=== PATIENT | male | born 1950 | race Caucasian/White ===

== ENCOUNTER → 2019-05-11 | Outpatient (CLI) | payer OTHER ==
[~2019-05-11] VITALS: Ht 165 cm; Wt 65.0 kg
[~2019-05-11] MED LIST: CATHETER FLUSH 10 ML SYR IV PRN; REGADENOSON 0.4 MG/5 ML SYR (LEXISCAN) IV ONE
--- NOTE | 2019-05-11 11:55 | STRESS TEST ---
DATE OF SERVICE: 05/11/2019 NUCLEAR MYOVIEW REPORT REFERRING PHYSICIAN: Dr. Hernández. SUMMARY: The patient was injected with 10.4 mCi of technetium-99 Myoview and the resting images were obtained. Then, the patient received 31.4 mCi of technetium-99 Myoview and the stress images were acquired. The resting and stress images were reviewed and compared in the short axis, horizontal long axis, and vertical long axis views. Review of the images showed good radiotracer uptake with no significant ischemia or infarction. SSS 1, SDS 1. TID value 1.08. On the gated images, the left ventricle appeared to be normal size with normal contractility. Calculated ejection fraction 78%. CONCLUSION: 1. No ischemia or infarction on SPECT images. 2. Normal left ventricular size with normal contractility. Calculated ejection fraction 78%. Job ID: [id number] DocumentID: [id number] Dictated Date: 05/11/2019 11:16:03 [employer] Date: 05/11/2019 11:54:35 Dictated By: CAMMY VASQUEZ MD
== END ==
LOC: CARD 06:44
PROVIDERS: ATTEND Internal Medicine
DX: R55 Syncope and collapse (principal)
CPT/HCPCS: 78452; 93017

== ENCOUNTER → 2019-05-12 | Outpatient (CLI) | payer OTHER ==
--- NOTE | 2019-05-12 14:54 | Diagnostic Imaging Report ---
PROCEDURE: US carotid duplex, bilateral. TECHNIQUE: Multiple real-time grayscale images were obtained over the carotid arteries in various projections, bilaterally. Additional spectral analysis and color Doppler duplex images were also obtained. INDICATION: Syncope. COMPARISON: There are no prior studies available for comparison. FINDINGS: There is moderately heavy hard and soft plaque formation in both carotid bifurcations. The flow velocities fail to show any sign of a hemodynamically significant stenosis of the common or internal carotid arteries, however. Both vertebral arteries were noted, and there was antegrade flow bilaterally. IMPRESSION: There is atherosclerotic disease involving both carotid systems, but there is no evidence for a hemodynamically significant stenosis of the common or internal carotid arteries. Parameters based on the consensus panel Prado-Scale and Doppler ultrasound criteria published January 2003, Radiology, Volume 229. DOPPLER (peak systolic velocity M/S Right Left CCA 8.0 1 ICA Proximal 3.8 4.1 ICA Mid 5.2 4.4 ICA Distal 5.7 4.6 RATIO .65 .43 ECA 8.1 7.3 VERT 4.2 4.3 Dictated by: Dictated on workstation # [id number]
== END ==
LOC: RAD 13:40
PROVIDERS: ATTEND Internal Medicine
DX: I65.23 Occlusion and stenosis of bilateral carotid arteries (principal)
CPT/HCPCS: 93880

== ENCOUNTER 2021-05-26 12:02 | Emergency (ER) | payer MEDICARE, OTHER ==
[~2021-05-26] VITALS: Ht 165.1 cm; Wt 63.5 kg
--- NOTE | 2021-05-26 12:31 | ED General ---
General Stated Complaint: CONFUSION/ANXIETY Source of Information: Patient Exam Limitations: No Limitations (ROCKY DE LA ROSA APRN) History of Present Illness Date Seen by Provider: May 26, 2021 Time Seen by Provider: 12:29 Initial Comments To ER accompanied by his with reports of anxiety and personality changes over the past month or 2. She states that she noticed it as well as the members of the amish. He states that he drinks 1 "mouthful" of nisreen each night "b efore my head hits the pillow". However the states that it is 16 ounces every night. She states that he has fallen quite a bit lately. Yesterday he seemed very anxious and was going to leave the house to go get some tea, he did leave and then came back and said he never got tea and she states he was pacing a lot and very restless. Additionally, she and he are getting a divorce and he reports that caused a lot of stress after 19 years of marriage as well as looking for a new place to stay. He states he feels perfectly fine. Timing/Duration: Constant, Getting Worse Severity: Moderate Associated Systoms: Denies Symptoms (ROCKY DE LA ROSA APRN) Allergies and Home Medications Allergies Coded Allergies: No Allergy Information Available (Unverified , 05/11/19) Patient Home Medication List Home Medication List Reviewed: Yes (ROCKY DE LA ROSA APRN) Potassium Chloride (Potassium Chloride) 20 Meq Tab.er.prt, 20 MEQ PO BID Prescribed by: ROCKY DE LA ROSA on 05/26/21 1331 Review of Systems Review of Systems Constitutional: see HPI EENTM: see HPI Respiratory: no symptoms reported Cardiovascular: no symptoms reported Genitourinary: no symptoms reported Musculoskeletal: no symptoms reported Skin: no symptoms reported Psychiatric/Neurological: No Symptoms Reported Hematologic/Lymphatic: No Symptoms Reported Immunological/Allergic: no symptoms reported (ROCKY DE LA ROSA APRN) Physical Exam Vital Signs Vital Signs - First Documented 05/26/21 12:16 Temp 36.6 Pulse 98 Resp 20 B/P (MAP) 167/113 (131) Pulse Ox 95 O2 Delivery Room Air (GUILHERME RODRIGUEZ MD) Vital Signs Capillary Refill : (ROCKY DE LA ROSA APRN) Height, Weight, BMI Height: '" Weight: lbs. oz. kg; 23.87 BMI Method: General Appearance: No Apparent Distress, WD/WN, Other (Alert oriented pleasant. He knows that yesterday was [facility], he knows the date time and location. His conversation is appropriate.) Eyes: Bilateral Eye Normal Inspection, Bilateral Eye PERRL, Bilateral Eye EOMI HEENT: PERRL/EOMI, TMs Normal Neck: Full Range of Motion, Normal Inspection Respiratory: No Accessory Muscle Use, No Respiratory Distress Cardiovascular: Regular Rate, Rhythm, Normal Peripheral Pulses Gastrointestinal: Normal Bowel Sounds, Non Tender, Soft Extremity: Normal Capillary Refill, Normal Inspection Neurologic/Psychiatric: Alert, Oriented x3 Skin: Normal Color, Warm/Dry (ROCKY DE LA ROSA APRN) Progress/Results/Core Measures Suspected Sepsis SIRS Temperature: Pulse: Respiratory Rate: Laboratory Tests 05/26/21 12:50: White Blood Count 6.2 Blood Pressure / Mean: Laboratory Tests 05/26/21 12:50: Creatinine 1.24, INR Comment 1.1, Platelet Count 224, Total Bilirubin 0.7 (ROCKY DE LA ROSA APRN) Results/Orders Lab Results Laboratory Tests Test 05/26/21 12:50 05/26/21 13:55 Range/Units White Blood Count 6.2 4.3-11.0 10^3/uL Red Blood Count 4.66 4.30-5.52 10^6/uL Hemoglobin 15.6 13.3-17.7 g/dL Hematocrit 43 40-54 % Mean Corpuscular Volume 93 80-99 fL Mean Corpuscular Hemoglobin 34 25-34 pg Mean Corpuscular Hemoglobin Concent 36 32-36 g/dL Red Cell Distribution Width 12.3 10.0-14.5 % Platelet Count 224 130-400 10^3/uL Mean Platelet Volume 9.2 9.0-12.2 fL Immature Granulocyte % (Auto) 1 % Neutrophils (%) (Auto) 67 42-75 % Lymphocytes (%) (Auto) 16 12-44 % Monocytes (%) (Auto) 15 H 0-12 % Eosinophils (%) (Auto) 0 0-10 % Basophils (%) (Auto) 1 0-10 % Neutrophils # (Auto) 4.2 1.8-7.8 10^3/uL Lymphocytes # (Auto) 1.0 1.0-4.0 10^3/uL Monocytes # (Auto) 1.0 0.0-1.0 10^3/uL Eosinophils # (Auto) 0.0 0.0-0.3 10^3/uL Basophils # (Auto) 0.0 0.0-0.1 10^3/uL Immature Granulocyte # (Auto) 0.0 0.0-0.1 10^3/uL Prothrombin Time 14.1 12.2-14.7 SEC INR Comment 1.1 0.8-1.4 Sodium Level 139 135-145 MMOL/L Potassium Level 2.8 L 3.6-5.0 MMOL/L Chloride Level 105 98-107 MMOL/L Carbon Dioxide Level 18 L 21-32 MMOL/L Anion Gap 16 H 5-14 MMOL/L Blood Urea Nitrogen 13 7-18 MG/DL Creatinine 1.24 0.60-1.30 MG/DL Estimat Glomerular Filtration Rate 62 BUN/Creatinine Ratio 10 Glucose Level 117 H 70-105 MG/DL Calcium Level 9.1 8.5-10.1 MG/DL Corrected Calcium 9.3 8.5-10.1 MG/DL Magnesium Level 2.0 1.6-2.4 MG/DL Total Bilirubin 0.7 0.1-1.0 MG/DL Aspartate Amino Transf (AST/SGOT) 47 H 5-34 U/L Alanine Aminotransferase (ALT/SGPT) 39 0-55 U/L Alkaline Phosphatase 120 40-136 U/L Total Protein 6.7 6.4-8.2 GM/DL Albumin 3.8 3.2-4.5 GM/DL Serum Alcohol 57 H <10 MG/DL Urine Color YELLOW Urine Clarity SL CLOUDY Urine pH 6.0 5-9 Urine Specific Lares 1.025 H 1.016-1.022 Urine Protein TRACE H NEGATIVE Urine Glucose (UA) NEGATIVE NEGATIVE Urine Ketones NEGATIVE NEGATIVE Urine Nitrite NEGATIVE NEGATIVE Urine Bilirubin NEGATIVE NEGATIVE Urine Urobilinogen 0.2 < = 1.0 MG/DL Urine Leukocyte Esterase TRACE H NEGATIVE Urine RBC (Auto) TRACE-L H NEGATIVE Urine RBC RARE /HPF Urine WBC 0-2 /HPF Urine Squamous Epithelial Cells RARE /HPF Urine Crystals NONE /LPF Urine Bacteria NEGATIVE /HPF Urine Casts NONE /LPF Urine Mucus NEGATIVE /LPF Urine Culture Indicated NO (GUILHERME RODRIGUEZ MD) My Orders Orders - GUILHERME RODRIGUEZ MD Ed Iv/Invasive Line Start (05/26/21 12:13) Cbc With Automated Diff (05/26/21 12:13) Comprehensive Metabolic Panel (05/26/21 12:13) Magnesium (05/26/21 12:13) Ua Culture If Indicated (05/26/21 12:13) (GUILHERME RODRIGUEZ MD) Medications Given in ED Current Medications Medications Dose Ordered Sig/Shasha Route Start Time Stop Time Status Last Admin Dose Admin Potassium Chloride 40 meq ONCE ONCE PO 05/26/21 13:30 05/26/21 13:31 DC 05/26/21 13:58 40 MEQ Potassium Chloride 50 ml @ 50 mls/hr ONCE ONCE IV 05/26/21 13:30 05/26/21 14:29 DC 05/26/21 13:58 50 MLS/HR (GUILHERME RODRIGUEZ MD) Vital Signs/I&O 05/26/21 05/26/21 12:16 15:03 Temp 36.6 Pulse 98 88 Resp 20 20 B/P (MAP) 167/113 (131) 177/119 Pulse Ox 95 95 O2 Delivery Room Air Room Air (GUILHERME RODRIGUEZ MD) Vital Signs/I&O Capillary Refill : (ROCKY DE LA ROSA APRN) Departure Communication (Admissions) 9840-continues to state that he feels fine. We will give him some IV potassium here. I did discuss that his alcohol level was still measurably elevated at noon despite his last reported intake being over 12 hours ago. He states it was definitely last night before bed.. I then told him that it was likely more than "just to swallow" given that it was still measurably elevated this far out. He continues to report that it was "just to swallow. at the bedside disagrees. Either way we will discharge to home follow-up with primary care. NAME: FERNANDA DIETZ [facility] REC#: [id number] PT STATUS: REG ER : 1950 PHYSICIAN: ROCKY DE LA ROAS APRN ADMIT DATE: 05/26/21/ER Draft Date of Exam:05/26/21 CT HEAD WO INDICATION: Confusion, anxiety, and personality changes. EXAMINATION: CT brain without contrast on 05/26/2021. 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 Atherosclerosis is noted in the internal carotid arteries with prominence of the middle cerebral arteries bilaterally. These findings are likely all chronic. The vessels would be better characterized with CT imaging, if clinically indicated. There are chronic ischemic changes in a periventricular and deep white matter distribution. No superimposed acute hemorrhage or infarct is appreciated. There is no mass, mass effect, or midline shift. There is no hydrocephalus. There is mucosal thickening within the ethmoid air cells. The remaining sinuses are clear. The mastoid air cells are unremarkable. The osseous structures are intact. IMPRESSION: Diffuse chronic changes including areas of dolichoectasia/prominence and atherosclerotic disease along the vessels, see above discussion. Dictated on workstation # [id number] Dict: 05/26/21 1310 Trans: 05/26/21 1313 [id number] Interpreted by: HEATHER PALMER MD Electronically signed by: (ROCKY DE LA ROSA APRN) Impression Primary Impression: Hypokalemia Additional Impressions: Stressful life event affecting family Alcohol use disorder Disposition: 01 HOME, SELF-CARE Condition: Stable Departure-Patient Inst. Decision time for Depature: 13:28 (ROCKY DE LA ROSA APRN) Referrals: [facility] DO (PCP/Family) Primary Care Physician Patient Instructions: Alcohol Use Disorder ED, Hypokalemia Add. Discharge Instructions: 1. Take the potassium supplement as directed. Return to ER for any concerns. Follow-up with Dr. Brooks as scheduled. Consider reducing alcohol intake. Your alcohol level was 57 here at 1 PM and if your last drink was last night before bed then the amount that you drank is probably more than "just a mouthful". Long-term use of this much alcohol will have deleterious effects on physical health as well as mental health and cognition. Scripts Potassium Chloride (Potassium Chloride) 20 Meq Tab.er.prt 20 MEQ PO BID, #10 EACH Prov: ROCKY DE LA ROSA APRN 05/26/21 ATTENDING PHYSICIAN NOTE: I was physically present as attending physician in the emergency department during the care of this patient, but I was not directly involved in the decision making or delivery of care for this patient. (GUILHERME RODRIGUEZ MD) Copy Copies To 1: KRISTEN BROOKS PETER J APRN May 26, 2021 12:31 GUILHERME RODRIGUEZ MD May 26, 2021 19:43
[2021-05-26 13:11] LABS: BASOPHILS % (AUTO) 1 % (0-10); EOSINOPHILS % (AUTO) 0 % (0-10); HEMATOCRIT 43 % (40-54); HEMOGLOBIN 15.6 g/dL (13.3-17.7); LYMPHOCYTES % (AUTO) 16 % (12-44); MEAN CORPUSCULAR HEMOGLOBIN 34 pg (25-34); MEAN CORPUSCULAR HGB CONC 36 g/dL (32-36); MEAN CORPUSCULAR VOLUME 93 fL (80-99); MEAN PLATELET VOLUME 9.2 fL (9.0-12.2); MONOCYTES % (AUTO) 15 % (0-12); NEUTROPHILS # (AUTO) 4.2 10^3/uL (1.8-7.8); NEUTROPHILS % (AUTO) 67 % (42-75); PLATELET COUNT 224 10^3/uL (130-400); WHITE BLOOD COUNT 6.2 10^3/uL (4.3-11.0)
[2021-05-26 13:12] LABS: ALBUMIN 3.8 GM/DL (3.2-4.5); POTASSIUM 2.8 MMOL/L (3.6-5.0)
[2021-05-26 13:14] LABS: CALCIUM 9.1 MG/DL (8.5-10.1)
--- NOTE | 2021-05-26 13:14 | Diagnostic Imaging Report ---
INDICATION: Confusion, anxiety, and personality changes. EXAMINATION: CT brain without contrast on 05/26/2021. 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 Atherosclerosis is noted in the internal carotid arteries with prominence of the middle cerebral arteries bilaterally. These findings are likely all chronic. The vessels would be better characterized with CT imaging, if clinically indicated. There are chronic ischemic changes in a periventricular and deep white matter distribution. No superimposed acute hemorrhage or infarct is appreciated. There is no mass, mass effect, or midline shift. There is no hydrocephalus. There is mucosal thickening within the ethmoid air cells. The remaining sinuses are clear. The mastoid air cells are unremarkable. The osseous structures are intact. IMPRESSION: Diffuse chronic changes including areas of dolichoectasia/prominence and atherosclerotic disease along the vessels, see above discussion. Dictated by: Dictated on workstation # [id number]
[2021-05-26 13:15] LABS: TOTAL PROTEIN 6.7 GM/DL (6.4-8.2)
[2021-05-26 13:17] LABS: BILIRUBIN,TOTAL 0.7 MG/DL (0.1-1.0); INR 1.1 (0.8-1.4); PROTHROMBIN TIME PATIENT 14.1 SEC (12.2-14.7)
[2021-05-26 13:19] LABS: CREATININE SERUM 1.24 MG/DL (0.60-1.30)
[2021-05-26] MEDS ORDERED: KCL 20 MEQ TAB (K-DUR) PO ONE (13:30)
[2021-05-26] MEDS ORDERED: POTASSIUM CL 10MEQ/50ML IVPB 50 ML IV ONE (13:30)
[2021-05-26] MEDS ORDERED: POTA-179 PO (13:31)
[2021-05-26] MEDS ORDERED: NS IV 500 ML 500 ML ONE (13:51)
[2021-05-26] MEDS ORDERED: NS IV 500 ML 500 ML IV SCH (14:00)
[2021-05-26 14:03] LABS: BILIRUBIN,URINE NEGATIVE (NEGATIVE); CLARITY,URINE SL CLOUDY; COLOR,URINE YELLOW; GLUCOSE, URINE (UA) NEGATIVE (NEGATIVE); KETONES,URINE NEGATIVE (NEGATIVE); LEUKOCYTE ESTERASE ,URINE TRACE (NEGATIVE); NITRITE,URINE NEGATIVE (NEGATIVE); PROTEIN,URINE TRACE (NEGATIVE)
[2021-05-26 14:11] LABS: BACTERIA,URINE NEGATIVE /HPF; RBC,URINE RARE /HPF; SQUAMOUS EPITHELIAL CELL,UR RARE /HPF; WBC,URINE 0-2 /HPF
[2021-05-26 15:03] VITALS: BP 177/119
== END 2021-05-26 15:04 | disposition home or self-care (01) ==
LOC: EDUNIT# 12:02 → ER 12:06
DX: E87.6 Hypokalemia (principal); Z63.79 Other stressful life events affecting family and household; F10.10 Alcohol abuse, uncomplicated
CPT/HCPCS: 70450; 80053; 81000; 83735; 85025; 85610; 99284; G0480; 36415; 80320

== ENCOUNTER 2021-08-16 12:13 | Inpatient (IN) | payer MEDICARE, OTHER ==
[~2021-08-16] VITALS: Ht 165 cm; Wt 51.7 kg
[~2021-08-16 12:13] MED LIST changes: -CATHETER FLUSH 10 ML SYR IV PRN; +POTA-179 PO; -REGADENOSON 0.4 MG/5 ML SYR (LEXISCAN) IV ONE
[2021-08-16] MEDS ORDERED: FOLIC ACID 1 MG TAB PO ONE (12:45)
[2021-08-16] MEDS ORDERED: THIAMINE 100 MG (VITAMIN B-1) TAB PO ONE (12:45)
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
[2021-08-16 12:53] LABS: BASOPHILS % (AUTO) 0 % (0-10); EOSINOPHILS % (AUTO) 0 % (0-10); HEMATOCRIT 37 % (40-54); HEMOGLOBIN 13.5 g/dL (13.3-17.7); LYMPHOCYTES # (AUTO) 1.7 10^3/uL (1.0-4.0); LYMPHOCYTES % (AUTO) 21 % (12-44); MEAN CORPUSCULAR HEMOGLOBIN 34 pg (25-34); MEAN CORPUSCULAR HGB CONC 36 g/dL (32-36); MEAN CORPUSCULAR VOLUME 94 fL (80-99); MEAN PLATELET VOLUME 9.8 fL (9.0-12.2); MONOCYTES # (AUTO) 1.2 10^3/uL (0.0-1.0); MONOCYTES % (AUTO) 14 % (0-12); NEUTROPHILS # (AUTO) 5.3 10^3/uL (1.8-7.8); NEUTROPHILS % (AUTO) 63 % (42-75); PLATELET COUNT 229 10^3/uL (130-400); WHITE BLOOD COUNT 8.3 10^3/uL (4.3-11.0)
[2021-08-16 12:57] LABS: ALBUMIN 3.4 GM/DL (3.2-4.5); CHLORIDE 94 MMOL/L (98-107); POTASSIUM 2.8 MMOL/L (3.6-5.0); SODIUM 138 MMOL/L (135-145)
[2021-08-16 12:59] LABS: GLUCOSE 117 MG/DL (70-105); INR 1.1 (0.8-1.4); PROTHROMBIN TIME PATIENT 14.5 SEC (12.2-14.7); TOTAL PROTEIN 6.3 GM/DL (6.4-8.2)
[2021-08-16 13:00] LABS: CARBON DIOXIDE 21 MMOL/L (21-32)
[2021-08-16] MEDS ORDERED: NS IV 500 ML 500 ML IV ONE (13:00)
[2021-08-16 13:01] LABS: BILIRUBIN,TOTAL 2.4 MG/DL (0.1-1.0)
[2021-08-16 13:03] LABS: ALKALINE PHOSPHATASE 98 U/L (40-136); CREATININE SERUM 1.02 MG/DL (0.60-1.30); GFR ESTIMATED 78
[2021-08-16 13:04] LABS: BUN/CREATININE RATIO 15
[2021-08-16 13:06] LABS: ALANINE AMINOTRANSFERASE 42 U/L (0-55); MAGNESIUM 1.8 MG/DL (1.6-2.4)
[2021-08-16] MEDS ORDERED: 1/2 NS W/KCL 20 MEQ/L 1,000 ML IV SCH (13:15)
--- NOTE | 2021-08-16 13:35 | Diagnostic Imaging Report ---
INDICATION: Syncope. Frontal chest obtained at 1:16 p.m. FINDINGS: Heart and mediastinal silhouette are normal in appearance. The lungs are clear. There is no pneumothorax or pleural fluid. IMPRESSION: Negative chest. Dictated by: Dictated on workstation # [id number]
--- NOTE | 2021-08-16 14:15 | Diagnostic Imaging Report ---
PROCEDURE: CT head and CT cervical spine without contrast. TECHNIQUE: Multiple contiguous axial images were obtained through the brain and cervical spine without the use of intravenous contrast. Sagittal and coronal reformations through the cervical spine were then performed. Auto Exposure Controls were utilized during the CT exam to meet ALARA standards for radiation dose reduction. INDICATION: Syncopal episode with fall. COMPARISON: Exam is compared with head CT 05/26/2021. FINDINGS: HEAD: While new from prior, there is an isodense likely subacute right hemispheric subdural hematoma at frontoparietal convexities measuring a maximal thickness of 6.3 mm in the coronal projections. Also new from prior is a more dense acute appearing shallow subdural hemorrhage layering along the posteroinferior aspect of the right tentorium measuring 3-4 mm in maximal cephalocaudal thickness. This is best seen on coronal reconstruction image 59. There is no calvarial fracture. There is no pneumocephalus. There is no parenchymal or intraventricular blood found. The right hemispheric subdural collection results in very slight distortion of the contour to the body of the right lateral ventricle, but no silvia shift of the midline structures and no herniation nor findings of elevated intracerebral pressures. The anterior and posterior mclean of the frontal sinuses are intact. There is membrane thickening opacifying a few left-sided ethmoid air cells, unchanged. No paranasal sinus hemorrhage or air-fluid level. The mastoid air cells and middle ear cavities are clear. Central skull base is intact. There are atherosclerotic vascular calcifications, atrophy, and chronic white matter disease superimposed, stable. CERVICAL SPINE: No relevant comparison. There are degenerative changes to the discs, endplates, facets, and uncovertebral joints throughout the cervical spine on a chronic basis. Degenerative disease is believed to account for grade 1, slight 1 mm degenerative anterolisthesis of C2 on C3 and anterolisthesis of 2 mm of T1 on T2. No facet joint dislocation. No cervical spinal fracture. No paraspinal swelling, hemorrhage, or fluid collection found. The degenerative disease results in severe left foraminal stenosis at C2-C3 where there is mild canal narrowing. At C3-C4, there is moderate canal and severe left greater than right foraminal stenosis. At L4-L5, there is severe left and moderate right foraminal stenosis with mild canal narrowing. At C5-C6, there is severe right greater than left foraminal stenosis. At C6-C7, [id number]-io-gelvqr bony biforaminal and mild canal stenosis present. Craniocervical relationship is normal. The central skull base is intact. IMPRESSION: HEAD: 1. New from prior subacute appearing right hemispheric convexity subdural hematoma measures 6 mm in thickness. 2. New more acute appearing hyperdense shallow subdural hemorrhage layering along the right tentorium posteriorly, 4 mm. 3. The right hemispheric blood results in very slight distortion of the contour of the right lateral ventricle, but the midline structures themselves are nondisplaced. There is no parenchymal or ventricular blood. No skull fracture. No hemo-sinus. No findings of elevated intracerebral pressures. CERVICAL SPINE: 1. The cervical spine reveals hypertrophic degenerative changes accounting for multilevel slight grade 1 listheses and multilevel foraminal greater than canal chronic bony stenoses. 2. However, there is no cervical spinal fracture or dislocation. Results discussed with Dr. Russo. Dictated by: Dictated on workstation # [id number]
[2021-08-16 14:32] LABS: BILIRUBIN,URINE 1+ (NEGATIVE); CLARITY,URINE CLEAR; COLOR,URINE DARK YELLOW; GLUCOSE, URINE (UA) NEGATIVE (NEGATIVE); KETONES,URINE 1+ (NEGATIVE); LEUKOCYTE ESTERASE ,URINE NEGATIVE (NEGATIVE); NITRITE,URINE NEGATIVE (NEGATIVE); PH,URINE 7.5 (5-9); PROTEIN,URINE NEGATIVE (NEGATIVE)
[2021-08-16 14:43] LABS: AMPHETAMINE SCREEN, URINE NEGATIVE (NEGATIVE); BARBITURATE SCREEN URINE NEGATIVE (NEGATIVE); BENZODIAZEPINES SCREEN URINE NEGATIVE (NEGATIVE); CANNABINOID SCREEN, URINE NEGATIVE (NEGATIVE); COCAINE SCREEN URINE NEGATIVE (NEGATIVE); METHADONE STAT NEGATIVE (NEGATIVE); OPIATE SCREEN URINE NEGATIVE (NEGATIVE); OXYCODONE STAT NEGATIVE (NEGATIVE); PROPOXYPHENE STAT NEGATIVE (NEGATIVE); TRICYCLIC ANTIDEPRESSANTS SCRE NEGATIVE (NEGATIVE)
[2021-08-16] MEDS ORDERED: 1/2 NS IV SOLUTION 1,000 ML IV PRN (14:45)
[2021-08-16] MEDS ORDERED: polyethylene glycoL POWDER 17 GM (MIRALAX) PACK PO PRN (14:45)
[2021-08-16] MEDS ORDERED: LACTULOSE SYRUP 10GM/15ML (ENULOSE) 30ML UDC PO PRN (14:45)
[2021-08-16] MEDS ORDERED: BISACODYL 10 MG SUPP (DULCOLAX) PR PRN (14:45)
[2021-08-16] MEDS ORDERED: diphenhydrAMINE 25 MG TAB (BENADRYL) PO PRN (14:45)
[2021-08-16] MEDS ORDERED: ANTACID SUSP 30 ML UDC (MYLANTA) PO PRN ×2 (14:45)
[2021-08-16] MEDS ORDERED: diphenhydrAMINE 50 MG/ML INJ (BENADRYL) IVP PRN (14:45)
[2021-08-16] MEDS ORDERED: CALCIUM CARBONATE 500 MG (TUMS) TAB.CHEW PO PRN (14:45)
[2021-08-16] MEDS ORDERED: morphine INJ 4 MG/ML 1 ML (VIAL/SYRINGE) IV PRN (14:45)
[2021-08-16] MEDS ORDERED: MILK OF MAGNESIA 400 MG/5 ML 30 ML UDC PO PRN (14:45)
[2021-08-16] MEDS ORDERED: D5 1/2 NS 1000 ML IV SOLUTION 1,000 ML IV PRN (14:45)
[2021-08-16] MEDS ORDERED: MELATONIN 3 MG TABLET PO PRN (14:45)
[2021-08-16] MEDS ORDERED: ONDANSETRON 4 MG (ZOFRAN) ORAL DISSOLVE TAB PO PRN (14:45)
[2021-08-16] MEDS ORDERED: LORazepam INJ 2 MG/ML (ATIVAN) VIAL IV PRN (14:45)
[2021-08-16] MEDS ORDERED: ACETAMINOPHEN 325 MG TABLET PO PRN (14:45)
[2021-08-16] MEDS ORDERED: LORazepam INJ 2 MG/ML (ATIVAN) VIAL IM/IV PRN (14:45)
[2021-08-16] MEDS ORDERED: SENNA W/DOCUSATE (SENOKOT S) TABLET PO PRN (14:45)
[2021-08-16] MEDS ORDERED: ONDANSETRON 4 MG/2 ML (SDV) Z0FRAN IV PRN (14:45)
[2021-08-16 14:54] LABS: AMORPHOUS SEDIMENT,UR FEW AMOR PHOSPHATE /LPF; BACTERIA,URINE NEGATIVE /HPF; RBC,URINE RARE /HPF; WBC,URINE RARE /HPF
--- NOTE | 2021-08-16 15:02 | Occ Therapy Progress Note ---
Therapy Progress Note OT orders received and chart reviewed. Pt is still in ED and not in 4th floor med/surg room yet. OT will attempt evaluation tomorrow. BAHMAN WEST OT Aug 16, 2021 15:02
--- NOTE | 2021-08-16 15:04 | Physical Therapy Progress Note ---
Therapy Progress Note Order for PT evaluation received. At 1500 patient is still not in his room from ER. Will attempt tomorrow morning. ANA RIOS PT Aug 16, 2021 15:04
--- NOTE | 2021-08-16 15:06 | History & Physical ---
History of Present Illness HPI/Chief Complaint CC: Falls with syncope and subdural hematoma subacute HPI: This is a 71yoWM clinic patient of mine who has had a progressive decline in the past 6 months since he and his moved [place]. He has lost 45 pounds since this major life event occurred even though I was seeing him in the office frequently. He has had a progressive mental decline also. I had an in-depth conversation last time I saw him in clinic on 06/05/21 and he made it clear his son Conrado was his primary decision m jose eduardo and I recommended he designate him as his DPOA and I took down his son's phone number and he called Conrado while I was in the room during the visit and my scribe witnessed the conversation and documented such and explained Conrado son would be that designated person and Conrado agreed. He had multiple falls during a shower today and was brought to the ER via EMS which revealed a subdural hematoma which was subacute and NSG recommended conservative management. Source: patient, family, old records Exam Limitations: clinical condition Date Seen 08/16/21 Time Seen by a Provider: 17:30 Attending Physician Emeterio Hernández DO PCP Admitting Physician: Steffi Luevano DO Attending Physician: Steffi Luevano DO Referring Physician Date of Admission Aug 16, 2021 at 14:27 Home Medications & Allergies Home Medications Reviewed patient Home Medication Reconciliation performed by pharmacy medication reconciliations greenhouse technician and/or nursing. Patients Allergies have been reviewed. Allergies Allergies Coded Allergies No Known Drug Allergies (Unverified08/16/21) Past Kfjehuf-Hhbtsf-Mulsot Hx Past Med/Social Hx: Reviewed Nursing Past Med/Soc Hx Patient Social History Employed/Student: retired Alcohol Use: Regular Use Smoking Status: Former Smoker Past Medical History Cardiac: Hypertension Review of Systems Constitutional: see HPI, malaise, weakness EENTM: no symptoms reported Respiratory: no symptoms reported Cardiovascular: no symptoms reported Gastrointestinal: no symptoms reported Physical Exam Physical Exam Vital Signs Vital Signs - First Documented 08/16/21 08/16/21 08/16/21 12:18 15:10 15:42 Temp 36.1 Pulse 82 Resp 18 B/P (MAP) 129/91 (104) Pulse Ox 98 O2 Delivery Room Air Capillary Refill : Less Than 3 Seconds Height, Weight, BMI Height: '" Weight: lbs. oz. kg; 19.00 BMI Method: General Appearance: No Apparent Distress, Chronically ill, Cachetic, Thin HEENT: PERRL/EOMI, Pharynx Normal, Moist Mucous Membranes Neck: Full Range of Motion, Normal Inspection Respiratory: Lungs Clear, Normal Breath Sounds, No Accessory Muscle Use, No Res piratory Distress Cardiovascular: Regular Rate, Rhythm, No Edema, Normal Peripheral Pulses Gastrointestinal: Normal Bowel Sounds, No Organomegaly, Non Tender, Soft Extremity: Normal Capillary Refill, Normal Inspection, No Pedal Edema Neurologic/Psychiatric: Alert, No Motor/Sensory Deficits, Other (Oriented to p erson and place but not time) Skin: Normal Color, Warm/Dry Results Results/Procedures Labs Laboratory Tests 08/16/21 12:23 Patient resulted labs reviewed. Assessment/Plan Admission Diagnosis Assessment: Subdural hematoma Falls Confusion rapidly progressive type Alcoholism HTN Profound weight loss 155 to 112 in past 6 months Plan: CT head tomorrow per NSG Seizure meds prophylactically Hold ASA and anticoagulants PT OT Needs SNF versus [place] Admission Status: Observation Diagnosis/Problems Diagnosis/Problems (1) Subacute subdural hematoma Status: Acute (2) Frequent falls Status: Acute (3) Syncope Status: Acute Qualifiers: Syncope type: unspecified Qualified Codes: R55 - Syncope and collapse (4) Dementia Status: Acute Qualifiers: Dementia type: associated with alcoholism Dementia behavioral disturbance: without behavioral disturbance Qualified Codes: F10.27 - Alcohol dependence with alcohol-induced persisting dementia (5) Alcohol use disorder, severe, dependence Status: Acute (6) Stressful life event affecting family Status: Acute Clinical Quality Measures DVT/VTE Risk/Contraindication: Contraindications-Pharm: Other *list below* Other: subdural hematoma STEFFI LUEVANO DO Aug 16, 2021 15:06
[2021-08-16 15:42] VITALS: BP 145/89
[2021-08-16] MEDS ORDERED: THIAMINE INJECTION 100 MG, FOLIC ACID INJECTION 1 MG, MAGNESIUM SULFATE 2 GM, VITAMIN M... IV SCH ×5 (16:00)
[2021-08-16] MEDS: D5 1/2 NS W/KCL 20 MEQ/L 1,000 ML IV SCH ×2 (17:07→23:05)
[2021-08-16 20:00] VITALS: BP 154/87
[2021-08-16] MEDS: DOCUSATE SODIUM 100 MG (COLACE) CAP PO SCH (20:06)
[2021-08-16] MEDS: LORazepam 1 MG (ATIVAN) TAB PO PRN (20:17)
[2021-08-16] MEDS ORDERED: MAGNESIUM OXIDE (MAG-OX)400 MG TAB PO SCH (21:00)
[2021-08-16] MEDS: MAGNESIUM OXIDE (MAG-OX)400 MG TAB PO SCH (23:04)
[2021-08-17 00:17] VITALS: BP 122/80
[2021-08-17 03:26] VITALS: BP 123/81
[2021-08-17] MEDS: D5 1/2 NS W/KCL 20 MEQ/L 1,000 ML IV SCH ×2 (04:15→10:46)
[2021-08-17] MEDS: THIAMINE 100 MG (VITAMIN B-1) TAB PO SCH (05:57)
[2021-08-17] MEDS: MULTIVIT W/MINERALS TAB (THERAGRAN M) PO SCH (05:57)
[2021-08-17 06:29] LABS: BASOPHILS % (AUTO) 0 % (0-10); EOSINOPHILS % (AUTO) 0 % (0-10); HEMATOCRIT 36 % (40-54); LYMPHOCYTES % (AUTO) 13 % (12-44); MEAN CORPUSCULAR HEMOGLOBIN 34 pg (25-34); MEAN CORPUSCULAR HGB CONC 37 g/dL (32-36); MEAN CORPUSCULAR VOLUME 92 fL (80-99); MONOCYTES # (AUTO) 0.9 10^3/uL (0.0-1.0); MONOCYTES % (AUTO) 12 % (0-12); NEUTROPHILS # (AUTO) 5.6 10^3/uL (1.8-7.8); NEUTROPHILS % (AUTO) 74 % (42-75); PLATELET COUNT 197 10^3/uL (130-400); WHITE BLOOD COUNT 7.6 10^3/uL (4.3-11.0)
--- NOTE | 2021-08-17 06:31 | Progress Note ---
Subjective Date Seen by a Provider: Aug 17, 2021 Time Seen by a Provider: 10:30 Subjective/Events-last exam Patient doing pretty well No alcohol withdrawal right now Keane cath discontinued but had to be replaced due to urinary retention Spoke with son in depth at the bedside and then outside the room Patient in reality is hospice candidate Assisted living versus jail being pursued up in [place] Review of Systems General: Fatigue, Malaise Neurological: Confusion Objective Exam Last Set of Vital Signs Vital Signs Date Time Temp Pulse Resp B/P (MAP) Pulse Ox O2 Delivery O2 Flow Rate FiO2 08/17/21 03:26 36.5 83 16 123/81 (95) 97 Room Air Capillary Refill : Less Than 3 Seconds I&O Intake and Output 08/17/21 00:00 Intake Total 1080 ml Output Total 900 ml Balance 180 ml Intake Oral 580 ml IV Total 500 ml Output Urine Total 900 ml Daily Weight Change Unsure General: Alert, Oriented X3, Cooperative, No Acute Distress Lungs: Clear to Auscultation, Normal Air Movement Heart: Regular Rate, Normal S1, Normal S2, No Murmurs Psych/Mental Status: Other (Confused) Results Lab Laboratory Tests 08/16/21 12:23: White Blood Count 8.3, Red Blood Count 3.98L, Hemoglobin 13.5, Hematocrit 37L, Mean Corpuscular Volume 94, Mean Corpuscular Hemoglobin 34, Mean Corpuscular Hemoglobin Concent 36, Red Cell Distribution Width 12.0, Platelet Count 229, Me an Platelet Volume 9.8, Immature Granulocyte % (Auto) 1, Neutrophils (%) (Auto) 63, Lymphocytes (%) (Auto) 21, Monocytes (%) (Auto) 14H, Eosinophils (%) (Auto) 0, Basophils (%) (Auto) 0, Neutrophils # (Auto) 5.3, Lymphocytes # (Auto) 1.7, Monocytes # (Auto) 1.2H, Eosinophils # (Auto) 0.0, Basophils # (Auto) 0.0, Immature Granulocyte # (Auto) 0.1, Prothrombin Time 14.5, INR Comment 1.1, Activated Partial Thromboplast Time 24, Sodium Level 138, Potassium Level 2.8L, Chloride Level 94L, Carbon Dioxide Level 21, Anion Gap 23H, Blood Urea Nitrogen 15, Creatinine 1.02, Estimat Glomerular Filtration Rate 78, BUN/Creatinine Ratio 15, Glucose Level 117H, Calcium Level 9.0, Corrected Calcium 9.5, Magnesium Level 1.8, Total Bilirubin 2.4H, Aspartate Amino Transf (AST/SGOT) 51H, Alanine Aminotransferase (ALT/SGPT) 42, Alkaline Phosphatase 98, Troponin I < 0.028, C- Reactive Protein High Sensitivity 1.47H, Total Protein 6.3L, Albumin 3.4, Thy roid Stimulating Hormone (TSH) 3.81, Serum Alcohol < 10 08/16/21 14:21: Urine Color DARK YELLOW, Urine Clarity CLEAR, Urine pH 7.5, Urine Specific [place] 1.010L, Urine Protein NEGATIVE, Urine Glucose (UA) NEGATIVE, Urine Ketones 1+H, Urine Nitrite NEGATIVE, Urine Bilirubin 1+H, Urine Urobilinogen 4. 0, Urine Leukocyte Esterase NEGATIVE, Urine RBC (Auto) NEGATIVE, Urine RBC RARE, Urine WBC RARE, Urine Crystals PRESENTH, Urine Amorphous Sediment FEW JACLYN PHOSPHATEH, Urine Bacteria NEGATIVE, Urine Casts NONE, Urine Mucus SMALLH, Urine Culture Indicated NO, Urine Opiates Screen NEGATIVE, Urine Oxycodone Screen NEGATIVE, Urine Methadone Screen NEGATIVE, Urine Propoxyphene Screen NEGATIVE, Urine Barbiturates Screen NEGATIVE, Ur Tricyclic Antidepressants Screen NEGATIVE, Urine Phencyclidine Screen NEGATIVE, Urine Amphetamines Screen NEGATIVE, Urine Methamphetamines Screen NEGATIVE, Urine Benzodiazepines Screen NEGATIVE, Urine Cocaine Screen NEGATIVE, Urine Cannabinoids Screen NEGATIVE 08/17/21 05:57: White Blood Count 7.6, Red Blood Count 3.85L, Hemoglobin 13.0L, Hematocrit 36L, Mean Corpuscular Volume 92, Mean Corpuscular Hemoglobin 34, Mean Corpuscular He moglobin Concent 37H, Red Cell Distribution Width 12.0, Platelet Count 197, Mean Platelet Volume 10.0, Immature Granulocyte % (Auto) 1, Neutrophils (%) (Auto) 74, Lymphocytes (%) (Auto) 13, Monocytes (%) (Auto) 12, Eosinophils (%) (Auto) 0, Basophils (%) (Auto) 0, Neutrophils # (Auto) 5.6, Lymphocytes # (Auto) 1.0, Monocytes # (Auto) 0.9, Eosinophils # (Auto) 0.0, Basophils # (Auto) 0.0, Immature Granulocyte # (Auto) 0.1 Assessment/Plan Assessment/Plan Assess & Plan/Chief Complaint Assessment: Subdural hematoma Falls Confusion rapidly progressive type Alcoholism HTN Profound weight loss 155 to 112 in past 6 months Early alcohol withdrawal Plan: CT head tomorrow per NSG Seizure meds prophylactically Hold ASA and anticoagulants PT OT Needs SNF versus AL 08/17/2021: Keane cath DC but required replacement Early alcohol withdrawal suspected Supportive care Diagnosis/Problems Diagnosis/Problems (1) Subacute subdural hematoma Status: Acute (2) Frequent falls Status: Acute (3) Syncope Status: Acute Qualifiers: Qualified Codes: R55 - Syncope and collapse (4) Dementia Status: Acute Qualifiers: Qualified Codes: F10.27 - Alcohol dependence with alcohol-induced persisting dementia (5) Alcohol use disorder, severe, dependence Status: Acute (6) Stressful life event affecting family Status: Acute Clinical Quality Measures DVT/VTE Risk/Contraindication: Contraindications-Pharm: Other *list below* Other: subdural hematoma KRISTEN BROOKS DO Aug 17, 2021 06:31
[2021-08-17 06:46] LABS: ALBUMIN 3.1 GM/DL (3.2-4.5)
[2021-08-17 06:47] LABS: POTASSIUM 2.8 MMOL/L (3.6-5.0)
[2021-08-17 06:48] LABS: CALCIUM 8.6 MG/DL (8.5-10.1)
[2021-08-17 06:49] LABS: TOTAL PROTEIN 5.9 GM/DL (6.4-8.2)
[2021-08-17 06:51] LABS: BILIRUBIN,TOTAL 1.7 MG/DL (0.1-1.0)
[2021-08-17 06:53] LABS: CREATININE SERUM 0.82 MG/DL (0.60-1.30)
[2021-08-17] MEDS: FOLIC ACID 1 MG TAB PO SCH (08:26)
[2021-08-17] MEDS: DOCUSATE SODIUM 100 MG (COLACE) CAP PO SCH ×2 (08:26→21:32)
[2021-08-17] MEDS: MAGNESIUM OXIDE (MAG-OX)400 MG TAB PO SCH ×2 (08:27→16:40)
[2021-08-17 08:33] VITALS: BP 102/69
[2021-08-17] MEDS: KCL 20 MEQ TAB (K-DUR) PO SCH ×3 (10:46→21:33)
--- NOTE | 2021-08-17 11:23 | Physical Therapy Evaluation ---
PT Evaluation-General Medical Diagnosis Admission Date Aug 16, 2021 at 14:27 Medical Diagnosis: alcohol use disorder Onset Date: Aug 16, 2021 Therapy Diagnosis Therapy Diagnosis: generalized weakness/debility Precautions Precautions/Isolations: Fall Prevention, Standard Precautions Referral Physician: Chloé Reason for Referral: Evaluation/Treatment Medical History Pertinent Medical History: Alcoholism, Dementia, HTN Current History EMS secondary to syncopal episode Reviewed History: Yes Social History Home: Apartment Current Living Status: Alone Prior Prior Level of Function SCALE: Activities may be completed with or without assistive devices. 6-Gywmmoyzos-xdphaen completes the activity by him/herself with no assistance from a helper. 5-Set-up or Clean-up Assistance-helper sets up or cleans up; patient completes activity. [place] assists only prior to or following the activity. 4-Supervision or Touching Assistance-helper provides verbal cues and/or touching/steadying and/or contact guard assistance as patient completes activity. Assistance may be provided throughout the activity or intermittently. 3-Partial/Moderate Assistance-helper does LESS THAN HALF the effort. [place] lifts, holds or supports trunk or limbs, but provides less than half the effort. 2-Substantial/Maximal Assistance-helper does MORE THAN HALF the effort. [place] lifts or holds trunk or limbs and provides more than half the effort. 9-Ovdomxcam-iswoxj does ALL the effort. Patient does none of the effort to complete the activity. Or, the assistance of 2 or more helpers is required for the patient to complete the activity. If activity was not attempted, code reason: 7-Patient Refused. 9-Not Applicable-not attempted and the patient did not perform the activity before the current illness, exacerbation or injury. 10-Not Attempted due to Environmental Limitations-(lack of equipment, weather restraints, etc.). 88-Not Attempted due to Medical Conditions or Safety Concerns. Bed Mobility: 6 Transfers (B,C,W/C): 6 Gait: 6 Indoor Mobility (Ambulation): Independent Prior Devices Use: None PT Evaluation-Current Subjective Patient and family agree to PT. Objective Patient Orientation: Confused Attachments: Keane Catheter, IV ROM/Strength ROM Lower Extremities bilateral LE WFL Strength Lower Extremities 3-/5 grossly bilateral LE Integumentary/Posture Integumentary multiple contusions Bowel Incontinence: Yes Bladder Incontinence: Keane Cath Posture kyphotic Neuromuscular (Tone, Coordination, Reflexes) diminished coordination Sensory Vision: Functional Hearing: Functional Transfers Roll Left to Right (QC): 2 Lying to Sitting/Side of Bed(Q: 2 Sit to Stand (QC): 2 Chair/Tfs-tx-[place] Xfer(QC): 2 Toilet Transfer (QC): 2 Gait Mode of Locomotion: Walk Anticipated Mode of Locomotion: Walk (2) Walk 10 feet (QC): 2 Walk 50 ft with 2 Turns(QC): 88 Walk 150 ft (QC): 88 Distance: 15' x 2 Gait Assistive Device: FWW Comments/Gait Description severe shuffle gait sequence with PT guiding FWW Balance Sitting Static: Fair Sitting Dynamic: Fair Standing Static: Poor Standing Dynamic: Poor Assessment/Needs 71 y.o. male, will benefit from skilled PT to address functional strength and mobility to improve current LOF. Patient presents with Parkinson's like gait/mobility. Rehab Potential: Guarded PT Halfway Goals Corporate Sales Representative Goals PT Corporate Sales Representative Goals Time Frame: Aug 26, 2021 Roll Left & Right (QC): 3 Sit to Lying (QC): 3 Lying-Sitting on Side/Bed(QC): 3 Sit to Stand (QC): 3 Chair/Jlx-yb-Irgyz Xfer(QC): 3 Toilet Transfer (QC): 3 Walk 10 feet (QC): 3 Walk 50ft with 2 Turns (QC): 3 PT Plan Problem List Problem List: Activity Tolerance, Functional Strength, Safety, Balance, Gait, Transfer, Bed Mobility Treatment/Plan Treatment Plan: Continue Plan of Care Treatment Plan: Bed Mobility, Education, Functional Activity Del, Functional Strength, Gait, Safety, Therapeutic Exercise, Transfers Treatment Duration: Aug 26, 2021 Frequency: 6 times per week Estimated Hrs Per Day: .25 hour per day Time/GCodes Time In: 1041 Time Out: 1104 Total Billed Treatment Time: 23 Total Billed Treatment 1 visit EVModC 9 min FA 14 min REYNALDO PARISI PT Aug 17, 2021 11:23
--- NOTE | 2021-08-17 11:38 | Occupational Therapy Eval ---
OT Evaluation-General/PLF Medical Diagnosis Admission Date Aug 16, 2021 at 14:27 Medical Diagnosis: alcohol use disorder Onset Date: Aug 16, 2021 Therapy Diagnosis Therapy Diagnosis: decreased ADL status, weakness Precautions Precautions/Isolations: Fall Prevention, Standard Precautions Referral Physician: Chloé Robertson Reason: Evaluation/Treatment Medical History Pertinent Medical History: Alcoholism, Dementia, HTN Current History ED due to syncopal episodes. Social History Home: Apartment Current Living Status: Alone ADL-Prior Level of Function SCALE: Activities may be completed with or without assistive devices. 8-Elnfkjsqho-kjrclhl completes the activity by him/herself with no assistance from a helper. 5-Set-up or Clean-up Assistance-helper sets up or cleans up; patient completes activity. [place] assists only prior to or following the activity. 4-Supervision or Touching Assistance-helper provides verbal cues and/or touching/steadying and/or contact guard assistance as patient completes activity. Assistance may be provided throughout the activity or intermittently. 3-Partial/Moderate Assistance-helper does LESS THAN HALF the effort. [place] lifts, holds or supports trunk or limbs, but provides less than half the effort. 2-Substantial/Maximal Assistance-helper does MORE THAN HALF the effort. [place] lifts or holds trunk or limbs and provides more than half the effort. 0-Ydvrptclj-lqkedp does ALL the effort. Patient does none of the effort to complete the activity. Or, the assistance of 2 or more helpers is required for the patient to complete the activity. If activity was not attempted, code reason: 7-Patient Refused. 9-Not Applicable-not attempted and the patient did not perform the activity before the current illness, exacerbation or injury. 10-Not Attempted due to Environmental Limitations-(lack of equipment, weather restraints, etc.). 88-Not Attempted due to Medical Conditions or Safety Concerns. ADL PLOF Comments Pt lives in an apartment by himself, was independent with ADLs and functional mobility without AD. Per pt's son, pt was doing well a few weeks ago when he visited, but this visit pt was found to be in poor living conditions, alcohol bottles all over the room, and urine/feces on surfaces. Self Care: Independent Functional Cognition: Independent OT Current Status Subjective Pt up in recliner, son at bedside. Son reports pt is unsafe to live by himself, found to be in poor living conditions. Pt required increased time to respond to questions and complete tasks. Pt appears unaware of his current condition. Mental Status/Objective Patient Orientation: Person, Confused Attachments: Keane Catheter, IV Current Upper Extremity ROM WFL Upper Extremity Coordination decreased fine motor, pt has arthritic hands/joints. Upper Extremity Strength grossly 3/5 ADL-Treatment Eating (QC): 3 (Per nursing report, pt required assistance with meals.) On/Off Footwear (QC): 3 (Pt required min A with doffing/donning gripper socks. Decreased fine motor coordination with task.) Toileting Hygiene (QC): 1 (Catheter.) Other Treatments Pt up in recliner, agreeable to OT Tx. Pt and son provided information about PLOF and home set up. Pt's son states plan is for pt to discharge to some type of facility, as he is unsafe to return home due to poor living conditions they found him in. Pt agreeable to OT tx, required increased time to answer questions, and increased time to complete tasks. Pt able to sit forward in his chair with increased time, then doffed/donned bilateral gripper socks, min A. Pt declined needing to use restroom at this time, and declined other ADLs. Per PT report, pt required max A with transfers and mobility (15'x2 with FWW). Post tx, pt in recliner, call light in reach and all needs met. Chair alarm activated and telesitter present. Education OT Patient Education: Correct positioning, Energy conservation, Modified ADL techniques, Progress toward Goal/Update tx plan, Purpose of tx/functional activities, Rehab process, Safety issues Teaching Recipient: Patient Teaching Methods: Discussion Response to Teaching: Reinforcement Needed OT Detention Goals Channel Process Plant Operator Goals Time Frame: Aug 25, 2021 Eating (QC): 5 Oral Hygiene (QC): 4 Toileting Hygiene (QC): 3 Shower/Bathe Self (QC): 3 Upper Body Dressing (QC): 4 Lower Body Dressing (QC): 3 On/Off Footwear (QC): 3 Additional Goals: 1-Demonstrate ADL Tasks, 2-Verbalize Understanding, 3- ImproveStrength/Del 1=Demonstrate adherence to instructed precautions during ADL tasks. 2=Patient will verbalize/demonstrate understanding of assistive devices/modifications for ADL. 3=Patient will improve strength/tolerance for activity to enable patient to perform ADL's. OT Education/Plan Problem List/Assessment Assessment: Decreased Activ Tolerance, Decreased UE Strength, Impaired Funct Balance Discharge Recommendations Plan/Recommendations: Continue POC Treatment Plan/Plan of Care Patient would benefit from OT for education, treatment and training to promote independence in ADL's, mobility, safety and/or upper extremity function for ADL's. Plan of Care: ADL Retraining, Functional Mobility, UE Funct Exercise/Act Treatment Duration: Aug 25, 2021 Frequency: 3 times per week (3-5 times per week) Estimated Hrs Per Day: .25 hour per day Rehab Potential: Guarded Time/GCodes Start Time: 11:10 Stop Time: 11:27 Total Time Billed (hr/min): 17 Billed Treatment Time 1, BAHMAN BRAY OT Aug 17, 2021 11:38
[2021-08-17 12:03] VITALS: BP 114/75
--- NOTE | 2021-08-17 14:10 | Diagnostic Imaging Report ---
INDICATION: Subdural hematoma TECHNIQUE: Multiple contiguous axial images were obtained through the brain without the use of intravenous contrast. Auto Exposure Controls were utilized during the CT exam to meet ALARA standards for radiation dose reduction. Comparison made to prior study of yesterday. Compared to the prior study, there is no change in the subdural hematoma along the right convexity, this is low-density in appearance compatible with a subacute to chronic age. The subdural measures about 6 mm in thickness. Smaller more acute appearing subdural hematoma along the right side of the tentorium appears stable as well, measuring about 4 mm. There is no new hemorrhage seen elsewhere. There are underlying atrophic changes with chronic ischemic changes in the deep white matter. Calvarial windows are unremarkable. IMPRESSION: Stable appearance of subacute to chronic subdural hematoma along the right convexity. Stable appearance of more acute appearing subdural hematoma along the right-sided tentorium. Underlying chronic changes. No significant change from yesterday. Dictated by: Dictated on workstation # [id number]
[2021-08-17 15:35] VITALS: BP 120/79
[2021-08-17 19:16] VITALS: BP 124/77
[2021-08-17] MEDS: LORazepam 1 MG (ATIVAN) TAB PO PRN (23:02)
[2021-08-18 00:43] VITALS: BP 152/103
[2021-08-18] MEDS: D5 1/2 NS W/KCL 20 MEQ/L 1,000 ML IV SCH ×2 (02:07→17:42)
[2021-08-18 04:11] VITALS: BP 133/90
[2021-08-18 06:03] LABS: BASOPHILS % (AUTO) 0 % (0-10); EOSINOPHILS % (AUTO) 0 % (0-10); HEMATOCRIT 33 % (40-54); HEMOGLOBIN 11.8 g/dL (13.3-17.7); LYMPHOCYTES # (AUTO) 1.2 10^3/uL (1.0-4.0); LYMPHOCYTES % (AUTO) 17 % (12-44); MEAN CORPUSCULAR HEMOGLOBIN 34 pg (25-34); MEAN CORPUSCULAR HGB CONC 36 g/dL (32-36); MEAN CORPUSCULAR VOLUME 95 fL (80-99); MEAN PLATELET VOLUME 9.6 fL (9.0-12.2); MONOCYTES # (AUTO) 1.1 10^3/uL (0.0-1.0); MONOCYTES % (AUTO) 16 % (0-12); NEUTROPHILS # (AUTO) 4.6 10^3/uL (1.8-7.8); NEUTROPHILS % (AUTO) 66 % (42-75); PLATELET COUNT 168 10^3/uL (130-400)
[2021-08-18] MEDS: MULTIVIT W/MINERALS TAB (THERAGRAN M) PO SCH (06:21)
[2021-08-18] MEDS: THIAMINE 100 MG (VITAMIN B-1) TAB PO SCH (06:21)
[2021-08-18 06:25] LABS: ALBUMIN 2.8 GM/DL (3.2-4.5); POTASSIUM 3.3 MMOL/L (3.6-5.0)
[2021-08-18 06:26] LABS: CALCIUM 8.9 MG/DL (8.5-10.1)
[2021-08-18 06:28] LABS: TOTAL PROTEIN 5.2 GM/DL (6.4-8.2)
[2021-08-18 06:29] LABS: BILIRUBIN,TOTAL 1.2 MG/DL (0.1-1.0)
[2021-08-18 06:31] LABS: CREATININE SERUM 0.86 MG/DL (0.60-1.30)
[2021-08-18 08:00] VITALS: BP 142/84
[2021-08-18] MEDS: FOLIC ACID 1 MG TAB PO SCH (08:49)
[2021-08-18] MEDS: KCL 20 MEQ TAB (K-DUR) PO SCH ×3 (08:49→19:19)
[2021-08-18] MEDS: MAGNESIUM OXIDE (MAG-OX)400 MG TAB PO SCH ×2 (08:49→17:43)
[2021-08-18] MEDS: DOCUSATE SODIUM 100 MG (COLACE) CAP PO SCH ×2 (08:50→19:16)
--- NOTE | 2021-08-18 09:08 | Occupational Ther Daily Note ---
OT Current Status-Daily Note Subjective Pt sleeping in bed, needs increased time to wake. Pt agrees to therapy. Orientated to name. No c/o pain. Mental Status/Objective Patient Orientation: Person, Confused Attachments: Keane Catheter, IV, Telemetry ADL-Treatment Therapy Code Descriptions/Definitions Functional [place] Measure: 0=Not Assessed/NA 4=Minimal Assistance 1=Total Assistance 5=Supervision or Setup 2=Maximal Assistance 6=Modified [place] 3=Moderate Assistance 7=Complete IndependenceSCALE: Activities may be completed with or without assistive devices. 8-Awgiifrcfi-ctubedm completes the activity by him/herself with no assistance from a helper. 5-Set-up or Clean-up Assistance-helper sets up or cleans up; patient completes activity. [place] assists only prior to or following the activity. 4-Supervision or Touching Assistance-helper provides verbal cues and/or touching/steadying and/or contact guard assistance as patient completes activity. Assistance may be provided throughout the activity or intermittently. 3-Partial/Moderate Assistance-helper does LESS THAN HALF the effort. [place] lifts, holds or supports trunk or limbs, but provides less than half the effort. 2-Substantial/Maximal Assistance-helper does MORE THAN HALF the effort. [place] lifts or holds trunk or limbs and provides more than half the effort. 4-Psjmijrgk-syjltf does ALL the effort. Patient does none of the effort to complete the activity. Or, the assistance of 2 or more helpers is required for the patient to complete the activity. If activity was not attempted, code reason: 7-Patient Refused. 9-Not Applicable-not attempted and the patient did not perform the activity before the current illness, exacerbation or injury. 10-Not Attempted due to Environmental Limitations-(lack of equipment, weather restraints, etc.). 88-Not Attempted due to Medical Conditions or Safety Concerns. Other Treatment After waking pt and orienting to what was being requested of him. Pt agrees to move from bed to recliner. Min A for supine to EOB. CGA sitting EOB for sa fety. Sit to stand with min A, min A to SPT from EOB to recliner. Pt taking small shuffling steps. After therapy, pt sitting in recliner with call light/phone in reach. Nrsg present in room. Safety measures in place. TeleSitter in room. OT Senior Living Goals Senior Living Goals Time Frame: Aug 25, 2021 Eating (QC): 5 Oral Hygiene (QC): 4 Toileting Hygiene (QC): 3 Shower/Bathe Self (QC): 3 Upper Body Dressing (QC): 4 Lower Body Dressing (QC): 3 On/Off Footwear (QC): 3 Additional Goals: 1-Demonstrate ADL Tasks, 2-Verbalize Understanding, 3-Im proveStrength/Del 1=Demonstrate adherence to instructed precautions during ADL tasks. 2=Patient will verbalize/demonstrate understanding of assistive devices/modifications for ADL. 3=Patient will improve strength/tolerance for activity to enable patient to perform ADL's. OT Education/Plan Problem List/Assessment Assessment: Decreased Activ Tolerance, Decreased Safety Aware, Decreased UE Strength, Impaired Cognition, Impaired Self-Care Skills Discharge Recommendations Plan/Recommendations: Continue POC Treatment Plan/Plan of Care Patient would benefit from OT for education, treatment and training to promote independence in ADL's, mobility, safety and/or upper extremity function for ADL's. Plan of Care: ADL Retraining, Functional Mobility, UE Funct Exercise/Act Treatment Duration: Aug 25, 2021 Frequency: 3 times per week (3-5 times per week) Estimated Hrs Per Day: .25 hour per day Rehab Potential: Guarded Time/GCodes Start Time: 08:30 Stop Time: 08:53 Total Time Billed (hr/min): 23 Billed Treatment Time 1 visit-FA 2 (23 min) THONY HARVEY Aug 18, 2021 09:08
--- NOTE | 2021-08-18 09:32 | Physical Therapy Daily Note ---
PT Daily Note-Current Subjective Patient sitting in recliner with telesitter and chair alarm activated. Mental Status Patient Orientation: Confused Attachments: Keane Catheter, IV Transfers SCALE: Activities may be completed with or without assistive devices. 3-Pmheykvlsz-sjusnnf completes the activity by him/herself with no assistance from a helper. 5-Set-up or Clean-up Assistance-helper sets up or cleans up; patient completes activity. [place] assists only prior to or following the activity. 4-Supervision or Touching Assistance-helper provides verbal cues and/or touching/steadying and/or contact guard assistance as patient completes activity. Assistance may be provided throughout the activity or intermittently. 3-Partial/Moderate Assistance-helper does LESS THAN HALF the effort. [place] lifts, holds or supports trunk or limbs, but provides less than half the effort. 2-Substantial/Maximal Assistance-helper does MORE THAN HALF the effort. [place] lifts or holds trunk or limbs and provides more than half the effort. 6-Xnqzssmgm-tjlocv does ALL the effort. Patient does none of the effort to complete the activity. Or, the assistance of 2 or more helpers is required for the patient to complete the activity. If activity was not attempted, code reason: 7-Patient Refused. 9-Not Applicable-not attempted and the patient did not perform the activity before the current illness, exacerbation or injury. 10-Not Attempted due to Environmental Limitations-(lack of equipment, weather restraints, etc.). 88-Not Attempted due to Medical Conditions or Safety Concerns. Sit to Stand (QC): 2 Gait Training Distance: 75' Walk 10 feet (QC): 2 Walk 50 ft with 2 Turns(QC): 2 Gait Assistive Device: FWW NBOS/shuffle gait sequence with flexed bilateral knee posture/PT advancing FWW due to patient's confusion Assessment Patient remains up in recliner with chair alarm activated. Nursing in to assist with breakfast. PT [facility] Goals Cabin Cleaner Goals PT [facility] Goals Time Frame: Aug 26, 2021 Roll Left & Right (QC): 3 Sit to Lying (QC): 3 Lying-Sitting on Side/Bed(QC): 3 Sit to Stand (QC): 3 Chair/Ixu-ut-Robgg Xfer(QC): 3 Toilet Transfer (QC): 3 Walk 10 feet (QC): 3 Walk 50ft with 2 Turns (QC): 3 PT Plan Treatment/Plan Treatment Plan: Continue Plan of Care Treatment Plan: Bed Mobility, Education, Functional Activity Del, Functional Strength, Gait, Safety, Therapeutic Exercise, Transfers Treatment Duration: Aug 26, 2021 Frequency: 6 times per week Estimated Hrs Per Day: .25 hour per day Time/GCodes Time In: 851 Time Out: 907 Total Billed Treatment Time: 16 Total Billed Treatment 1 visit GT 16 min REYNALDO PARISI PT Aug 18, 2021 09:32
--- NOTE | 2021-08-18 10:33 | Progress Note ---
Subjective Date Seen by a Provider: Aug 18, 2021 Time Seen by a Provider: 11:00 Subjective/Events-last exam Pt required catheter replacement due to urinary retention and obtained 600 ccs of urine Pt is sleeping currently Needs mcc placement CT scan repeat reviewed Labs reviewed Potassium supplement ordered Review of Systems General: Fatigue, Malaise Genitourinary: Retention Neurological: Confusion Objective Exam Last Set of Vital Signs Vital Signs Date Time Temp Pulse Resp B/P (MAP) Pulse Ox O2 Delivery O2 Flow Rate FiO2 08/18/21 08:00 97 Room Air 08/18/21 07:00 87 08/18/21 04:11 35.9 18 133/90 (104) Capillary Refill : Less Than 3 Seconds I&O Intake and Output 08/17/21 23:59 Intake Total 1150 ml Output Total 1800 ml Balance -650 ml Intake Oral 1150 ml Output Urine Total 1800 ml # Voids 4 # Bowel Movements 4 General: Alert, Oriented X3, Cooperative, No Acute Distress Lungs: Clear to Auscultation, Normal Air Movement Heart: Regular Rate, Normal S1, Normal S2, No Murmurs Psych/Mental Status: Other (confused) Results Lab Laboratory Tests 08/18/21 05:50: White Blood Count 7.0, Red Blood Count 3.48L, Hemoglobin 11.8L, Hematocrit 33L, Mean Corpuscular Volume 95, Mean Corpuscular Hemoglobin 34, Mean Corpuscular Hemoglobin Concent 36, Red Cell Distribution Width 12.3, Platelet Count 168, Mean Platelet Volume 9.6, Immature Granulocyte % (Auto) 1, Neutrophils (%) (Auto) 66, Lymphocytes (%) (Auto) 17, Monocytes (%) (Auto) 16H, Eosinophils (%) (Auto) 0, Basophils (%) (Auto) 0, Neutrophils # (Auto) 4.6, Lymphocytes # (Auto) 1.2, Monocytes # (Auto) 1.1H, Eosinophils # (Auto) 0.0, Basophils # (Auto) 0.0, Immature Granulocyte # (Auto) 0.1, Sodium Level 136, Potassium Level 3.3L, Chloride Level 101, Carbon Dioxide Level 25, Anion Gap 10, Blood Urea Nitrogen 9, Creatinine 0.86, Estimat Glomerular Filtration Rate 92, BUN/Creatinine Ratio 10, Glucose Level 133H, Calcium Level 8.9, Corrected Calcium 9.9, Total Bilirubin 1.2H, Aspartate Amino Transf (AST/SGOT) 35H, Alanine Aminotransferase (ALT/SGPT) 30, Alkaline Phosphatase 98, Total Protein 5.2L, Albumin 2.8L Assessment/Plan Assessment/Plan Assess & Plan/Chief Complaint Assessment: Subdural hematoma Falls Confusion rapidly progressive type Alcoholism HTN Profound weight loss 155 to 112 in past 6 months Early alcohol withdrawal Hypokalemia Urinary retention Keane cath in place Plan: CT head tomorrow per NSG Seizure meds prophylactically Hold ASA and anticoagulants PT OT Needs SNF versus AL 08/17/2021: Keane cath DC but required replacement Early alcohol withdrawal suspected Supportive care 08/18/21: Monitor closely ETOH withdrawal Supp K+ Diagnosis/Problems Diagnosis/Problems (1) Subacute subdural hematoma Status: Acute (2) Frequent falls Status: Acute (3) Syncope Status: Acute Qualifiers: Qualified Codes: R55 - Syncope and collapse (4) Dementia Status: Acute Qualifiers: Qualified Codes: F10.27 - Alcohol dependence with alcohol-induced persisting dementia (5) Alcohol use disorder, severe, dependence Status: Acute (6) Stressful life event affecting family Status: Acute Clinical Quality Measures DVT/VTE Risk/Contraindication: Contraindications-Pharm: Other *list below* Other: subdural hematoma KRISTEN BROOKS DO Aug 18, 2021 10:33
[2021-08-18] MEDS ORDERED: MAGNESIUM 1 GM/100 ML IVPB 100 ML IV ONE (11:30)
[2021-08-18 12:00] VITALS: BP 140/76
[2021-08-18] MEDS: POTASSIUM CL 10MEQ/50ML IVPB 50 ML IV SCH ×4 (13:49→17:43)
[2021-08-18 15:23] VITALS: BP 123/85
[2021-08-18 19:48] VITALS: BP 131/70
[2021-08-19] VITALS (7 sets, daily range): BP systolic 109–138; BP diastolic 67–92
[2021-08-19 05:36] LABS: BASOPHILS % (AUTO) 0 % (0-10); EOSINOPHILS % (AUTO) 1 % (0-10); HEMATOCRIT 38 % (40-54); HEMOGLOBIN 13.1 g/dL (13.3-17.7); LYMPHOCYTES # (AUTO) 1.3 10^3/uL (1.0-4.0); LYMPHOCYTES % (AUTO) 15 % (12-44); MEAN CORPUSCULAR HEMOGLOBIN 33 pg (25-34); MEAN CORPUSCULAR HGB CONC 35 g/dL (32-36); MEAN CORPUSCULAR VOLUME 95 fL (80-99); MEAN PLATELET VOLUME 9.7 fL (9.0-12.2); MONOCYTES # (AUTO) 1.1 10^3/uL (0.0-1.0); MONOCYTES % (AUTO) 12 % (0-12); NEUTROPHILS % (AUTO) 71 % (42-75); PLATELET COUNT 229 10^3/uL (130-400); WHITE BLOOD COUNT 8.5 10^3/uL (4.3-11.0)
[2021-08-19] MEDS: MULTIVIT W/MINERALS TAB (THERAGRAN M) PO SCH (05:42)
[2021-08-19] MEDS: THIAMINE 100 MG (VITAMIN B-1) TAB PO SCH (05:42)
[2021-08-19 06:01] LABS: ALBUMIN 3.3 GM/DL (3.2-4.5)
[2021-08-19 06:02] LABS: CALCIUM 9.4 MG/DL (8.5-10.1)
[2021-08-19 06:03] LABS: TOTAL PROTEIN 6.3 GM/DL (6.4-8.2)
[2021-08-19 06:05] LABS: BILIRUBIN,TOTAL 1.3 MG/DL (0.1-1.0)
[2021-08-19 06:07] LABS: CREATININE SERUM 0.8 MG/DL (0.60-1.30)
--- NOTE | 2021-08-19 06:12 | Progress Note - Hospitalist ---
Subjective HPI/CC On Admission Date Seen by Provider: Aug 19, 2021 Time Seen by Provider: 11:00 CC: Falls with syncope and subdural hematoma subacute HPI: This is a 71yoWM clinic patient of mine who has had a progressive decline in the past 6 months since he and his moved out [place]. He has lost 45 pounds since this major life event occurred even though I was seeing him in the office frequently. He has had a progressive mental decline also. I had an in-depth conversation last time I saw him in clinic on 06/05/21 and he made it clear his son Conrado was his primary decision maker and I recommended he designate him as his DPOA and I took down his son's phone number and he called Conrado while I was in the room during the visit and my scribe witnessed the conversation and documented such and explained Conrado son would be that designated person and Conrado agreed. He had multiple falls during a shower today and was brought to the ER via EMS which revealed a subdural hematoma which was subacute and NSG recommended conservative management. Subjective/Events-last exam Patient doing the same Sleeps all the time Consulted Dr Arredondo No pain reported Review of Systems General: Fatigue, Malaise Neurological: Confusion Objective Exam Vital Signs Vital Signs Date Time Temp Pulse Resp B/P (MAP) Pulse Ox O2 Delivery O2 Flow Rate FiO2 08/19/21 19:25 36.0 89 18 109/75 (86) 95 Room Air Capillary Refill : Less Than 3 Seconds General Appearance: No Apparent Distress, WD/WN Respiratory: Lungs Clear, Normal Breath Sounds Cardiovascular: Regular Rate, Rhythm Neurologic/Psychiatric: Alert, Depressed Affect, Disoriented Results/Procedures Lab Laboratory Tests 08/19/21 05:11 Patient resulted labs reviewed. Assessment/Plan Assessment and Plan Assess & Plan/Chief Complaint Assessment: Subdural hematoma Falls Confusion rapidly progressive type Alcoholism HTN Profound weight loss 155 to 112 in past 6 months Early alcohol withdrawal Hypokalemia Urinary retention Keane cath in place Plan: CT head tomorrow per NSG Seizure meds prophylactically Hold ASA and anticoagulants PT OT Needs SNF versus AL 08/17/2021: Keane cath DC but required replacement Early alcohol withdrawal suspected Supportive care 08/18/21: Monitor closely ETOH withdrawal Supp K+ 08/19/21: Appreciate Dr Arredondo Poor prognosis Diagnosis/Problems Diagnosis/Problems (1) Subacute subdural hematoma Status: Acute (2) Frequent falls Status: Acute (3) Syncope Status: Acute Qualifiers: Syncope type: unspecified Qualified Codes: R55 - Syncope and collapse (4) Dementia Status: Acute Qualifiers: Dementia type: associated with alcoholism Dementia behavioral disturbance: without behavioral disturbance Qualified Codes: F10.27 - Alcohol dependence with alcohol-induced persisting dementia (5) Alcohol use disorder, severe, dependence Status: Acute (6) Stressful life event affecting family Status: Acute Clinical Quality Measures DVT/VTE Risk/Contraindication: Contraindications-Pharm: Other *list below* Other: subdural hematoma KRISTEN BROOKS DO Aug 19, 2021 06:12
[2021-08-19] MEDS: DOCUSATE SODIUM 100 MG (COLACE) CAP PO SCH ×2 (08:15→19:16)
[2021-08-19] MEDS: KCL 20 MEQ TAB (K-DUR) PO SCH ×4 (08:15→19:16)
[2021-08-19] MEDS: FOLIC ACID 1 MG TAB PO SCH (08:15)
[2021-08-19] MEDS: MAGNESIUM OXIDE (MAG-OX)400 MG TAB PO SCH ×2 (08:15→18:02)
[2021-08-19] MEDS: D5 1/2 NS W/KCL 20 MEQ/L 1,000 ML IV SCH (08:16)
--- NOTE | 2021-08-19 09:28 | Physical Therapy Daily Note ---
PT Daily Note-Current Subjective Patient in bed. Agrees to PT. Mental Status Patient Orientation: Confused Attachments: Keane Catheter, IV Transfers SCALE: Activities may be completed with or without assistive devices. 2-Aqelbapulq-ostkqcx completes the activity by him/herself with no assistance from a helper. 5-Set-up or Clean-up Assistance-helper sets up or cleans up; patient completes activity. [place] assists only prior to or following the activity. 4-Supervision or Touching Assistance-helper provides verbal cues and/or touching/steadying and/or contact guard assistance as patient completes activity. Assistance may be provided throughout the activity or intermittently. 3-Partial/Moderate Assistance-helper does LESS THAN HALF the effort. [place] li fts, holds or supports trunk or limbs, but provides less than half the effort. 2-Substantial/Maximal Assistance-helper does MORE THAN HALF the effort. [place] lifts or holds trunk or limbs and provides more than half the effort. 9-Qqlitjtnu-upmlgy does ALL the effort. Patient does none of the effort to complete the activity. Or, the assistance of 2 or more helpers is required for the patient to complete the activity. If activity was not attempted, code reason: 7-Patient Refused. 9-Not Applicable-not attempted and the patient did not perform the activity before the current illness, exacerbation or injury. 10-Not Attempted due to Environmental Limitations-(lack of equipment, weather restraints, etc.). 88-Not Attempted due to Medical Conditions or Safety Concerns. Lying to Sitting/Side of Bed(Q: 2 Sit to Stand (QC): 2 Chair/Irt-pd-Acuxg Xfer(QC): 2 Gait Training Distance: 10' x 2 Walk 10 feet (QC): 2 Gait Assistive Device: FWW shuffle gait sequence Assessment Patient up in recliner with chair alarm activated. Patient ambulated to restroom and back to recliner with max assist for balance and FWW advancement. PT Regional Trainer Goals Regional Trainer Goals PT Regional Trainer Goals Time Frame: Aug 26, 2021 Roll Left & Right (QC): 3 Sit to Lying (QC): 3 Lying-Sitting on Side/Bed(QC): 3 Sit to Stand (QC): 3 Chair/Ujo-bc-Uxefr Xfer(QC): 3 Toilet Transfer (QC): 3 Walk 10 feet (QC): 3 Walk 50ft with 2 Turns (QC): 3 PT Plan Treatment/Plan Treatment Plan: Continue Plan of Care Treatment Plan: Bed Mobility, Education, Functional Activity Del, Functional Strength, Gait, Safety, Therapeutic Exercise, Transfers Treatment Duration: Aug 26, 2021 Frequency: 6 times per week Estimated Hrs Per Day: .25 hour per day Time/GCodes Time In: 845 Time Out: 853 Total Billed Treatment Time: 8 Total Billed Treatment 1 visit FA 8 min REYNALDO PARISI PT Aug 19, 2021 09:28
--- NOTE | 2021-08-19 16:38 | CONSULTATION REPORT ---
DATE OF SERVICE: 08/19/2021 ATTENDING PHYSICIAN: Dr. Luevano. SUMMARY: Most information was obtained from Dr. Luevano, the nurse, and the history and physical. The patient is a very poor historian and he is noted with alcoholism, history of syncope, and subdural hematoma, failed trial of voiding. Catheter was reinserted. It is hard to get any history from the patient regarding previous similar issues. I do not see him on any medication for prostate. Physical exam was deferred at this point. IMPRESSION: Urinary retention and medical issues per history. PLAN: We will start him on Flomax today and then maybe trial of voiding on Saturday or Saturday. Job ID: [id number] DocumentID: [id number] Dictated Date: 08/19/2021 12:15:26 Grant Administrator Date: 08/19/2021 16:37:32 Dictated By: CHERYL BURNS MD
[2021-08-19] MEDS: TAMSULOSIN 0.4 MG (FLOMAX) CAP PO SCH (18:02)
[2021-08-20] MEDS: D5 1/2 NS W/KCL 20 MEQ/L 1,000 ML IV SCH (00:10)
[2021-08-20 03:40] VITALS: BP 120/78
[2021-08-20 06:07] LABS: BASOPHILS % (AUTO) 0 % (0-10); EOSINOPHILS % (AUTO) 1 % (0-10); HEMATOCRIT 39 % (40-54); HEMOGLOBIN 13.8 g/dL (13.3-17.7); LYMPHOCYTES % (AUTO) 16 % (12-44); MEAN CORPUSCULAR HEMOGLOBIN 34 pg (25-34); MEAN CORPUSCULAR HGB CONC 36 g/dL (32-36); MEAN CORPUSCULAR VOLUME 97 fL (80-99); MEAN PLATELET VOLUME 9.8 fL (9.0-12.2); MONOCYTES # (AUTO) 0.8 10^3/uL (0.0-1.0); MONOCYTES % (AUTO) 13 % (0-12); NEUTROPHILS # (AUTO) 4.5 10^3/uL (1.8-7.8); NEUTROPHILS % (AUTO) 70 % (42-75); PLATELET COUNT 244 10^3/uL (130-400); WHITE BLOOD COUNT 6.5 10^3/uL (4.3-11.0)
--- NOTE | 2021-08-20 06:08 | Progress Note - Hospitalist ---
Subjective HPI/CC On Admission Date Seen by Provider: Aug 20, 2021 Time Seen by Provider: 10:00 CC: Falls with syncope and subdural hematoma subacute HPI: This is a 71yoWM clinic patient of mine who has had a progressive decline in the past 6 months since he and his moved out of the [place] to [place]. He has lost 45 pounds since this major life event occurred even though I was seeing him in the office frequently. He has had a progressive mental decline also. I had an in-depth conversation last time I saw him in clinic on 06/05/21 and he made it clear his son Conrado was his primary decision maker and I recommended he designate him as his DPOA and I took down his son's phone number and he called Conrado while I was in the room during the visit and my scribe witnessed the conversation and documented such and explained Conrado son would be that designated person and Conrado agreed. He had multiple falls during a shower today and was brought to the ER via EMS which revealed a subdural hematoma which was subacute and NSG recommended conservative management. Subjective/Events-last exam Patient sleeping Very debilitated IV went bad so DC IV meds Needs hospice Review of Systems General: Fatigue, Malaise Neurological: Confusion Objective Exam Vital Signs Vital Signs Date Time Temp Pulse Resp B/P (MAP) Pulse Ox O2 Delivery O2 Flow Rate FiO2 08/20/21 13:00 66 08/20/21 11:40 36.5 19 120/64 (82) 95 Room Air Capillary Refill : Less Than 3 Seconds General Appearance: Chronically ill, Other (confused, sleeping) Respiratory: Lungs Clear, Normal Breath Sounds Cardiovascular: Regular Rate, Rhythm Results/Procedures Lab Laboratory Tests 08/20/21 05:42 Patient resulted labs reviewed. Assessment/Plan Assessment and Plan Assess & Plan/Chief Complaint Assessment: Subdural hematoma Falls Confusion rapidly progressive type Alcoholism HTN Profound weight loss 155 to 112 in past 6 months Early alcohol withdrawal Hypokalemia Urinary retention Keane cath in place Plan: CT head tomorrow per NSG Seizure meds prophylactically Hold ASA and anticoagulants PT OT Needs SNF versus AL 08/17/2021: Keane cath DC but required replacement Early alcohol withdrawal suspected Supportive care 08/18/21: Monitor closely ETOH withdrawal Supp K+ 08/19/21: Appreciate Dr Arredondo Poor prognosis Diagnosis/Problems Diagnosis/Problems (1) Subacute subdural hematoma Status: Acute (2) Frequent falls Status: Acute (3) Syncope Status: Acute Qualifiers: Syncope type: unspecified Qualified Codes: R55 - Syncope and collapse (4) Dementia Status: Acute Qualifiers: Dementia type: associated with alcoholism Dementia behavioral disturbance: without behavioral disturbance Qualified Codes: F10.27 - Alcohol dependence with alcohol-induced persisting dementia (5) Alcohol use disorder, severe, dependence Status: Acute (6) Stressful life event affecting family Status: Acute Clinical Quality Measures DVT/VTE Risk/Contraindication: Contraindications-Pharm: Other *list below* Other: subdural hematoma KRISTEN BROOKS DO Aug 20, 2021 06:08
[2021-08-20] MEDS: MULTIVIT W/MINERALS TAB (THERAGRAN M) PO SCH (06:10)
[2021-08-20 06:23] LABS: ALBUMIN 3.2 GM/DL (3.2-4.5); POTASSIUM 5.6 MMOL/L (3.6-5.0)
[2021-08-20 06:24] LABS: CALCIUM 9.3 MG/DL (8.5-10.1)
[2021-08-20 06:26] LABS: TOTAL PROTEIN 6.3 GM/DL (6.4-8.2)
[2021-08-20 06:27] LABS: BILIRUBIN,TOTAL 1.3 MG/DL (0.1-1.0)
[2021-08-20 06:29] LABS: CREATININE SERUM 0.95 MG/DL (0.60-1.30)
[2021-08-20 07:38] VITALS: BP 124/81
[2021-08-20] MEDS: MAGNESIUM OXIDE (MAG-OX)400 MG TAB PO SCH ×2 (08:22→17:04)
[2021-08-20] MEDS: FOLIC ACID 1 MG TAB PO SCH (08:23)
[2021-08-20] MEDS: KCL 20 MEQ TAB (K-DUR) PO SCH ×3 (08:23→19:19)
[2021-08-20] MEDS: DOCUSATE SODIUM 100 MG (COLACE) CAP PO SCH ×2 (08:23→19:21)
[2021-08-20 11:40] VITALS: BP 120/64
[2021-08-20 17:00] VITALS: BP 109/76
[2021-08-20] MEDS: TAMSULOSIN 0.4 MG (FLOMAX) CAP PO SCH (17:04)
[2021-08-20 21:00] VITALS: BP 102/68
[2021-08-21 00:14] VITALS: BP 100/70
[2021-08-21 04:05] VITALS: BP 117/86
[2021-08-21] MEDS: MULTIVIT W/MINERALS TAB (THERAGRAN M) PO SCH (05:24)
[2021-08-21 05:41] LABS: BASOPHILS % (AUTO) 0 % (0-10); EOSINOPHILS % (AUTO) 1 % (0-10); HEMATOCRIT 38 % (40-54); HEMOGLOBIN 13.1 g/dL (13.3-17.7); LYMPHOCYTES # (AUTO) 0.9 10^3/uL (1.0-4.0); LYMPHOCYTES % (AUTO) 14 % (12-44); MEAN CORPUSCULAR HEMOGLOBIN 34 pg (25-34); MEAN CORPUSCULAR HGB CONC 35 g/dL (32-36); MEAN CORPUSCULAR VOLUME 98 fL (80-99); MEAN PLATELET VOLUME 9.7 fL (9.0-12.2); MONOCYTES # (AUTO) 0.9 10^3/uL (0.0-1.0); MONOCYTES % (AUTO) 14 % (0-12); NEUTROPHILS # (AUTO) 4.8 10^3/uL (1.8-7.8); NEUTROPHILS % (AUTO) 71 % (42-75); PLATELET COUNT 253 10^3/uL (130-400); WHITE BLOOD COUNT 6.8 10^3/uL (4.3-11.0)
[2021-08-21 05:51] LABS: ALBUMIN 3.1 GM/DL (3.2-4.5)
[2021-08-21 05:52] LABS: POTASSIUM 5.1 MMOL/L (3.6-5.0)
[2021-08-21 05:53] LABS: CALCIUM 9.5 MG/DL (8.5-10.1)
[2021-08-21 05:54] LABS: TOTAL PROTEIN 6.2 GM/DL (6.4-8.2)
[2021-08-21 05:56] LABS: BILIRUBIN,TOTAL 1.2 MG/DL (0.1-1.0)
[2021-08-21 05:58] LABS: CREATININE SERUM 1.18 MG/DL (0.60-1.30)
--- NOTE | 2021-08-21 06:05 | Progress Note - Hospitalist ---
Subjective HPI/CC On Admission Date Seen by Provider: Aug 21, 2021 Time Seen by Provider: 10:00 CC: Falls with syncope and subdural hematoma subacute HPI: This is a 71yoWM clinic patient of mine who has had a progressive decline in the past 6 months since he and his moved out of the [place]. He has lost 45 pounds since this major life event occurred even though I was seeing him in the office frequently. He has had a progressive mental decline also. I had an in-depth conversation last time I saw him in clinic on 06/05/21 and he made it clear his son Conrado was his primary decision maker and I recommended he designate him as his DPOA and I took down his son's phone number and he called Conrado while I was in the room during the visit and my scribe witnessed the conversation and documented such and explained Conrado son would be that designated person and Conrado agreed. He had multiple falls during a shower today and was brought to the ER via EMS which revealed a subdural hematoma which was subacute and NSG recommended conservative management. Objective Exam Vital Signs Vital Signs Date Time Temp Pulse Resp B/P (MAP) Pulse Ox O2 Delivery O2 Flow Rate FiO2 08/21/21 14:03 37.1 97 17 104/63 96 Room Air Capillary Refill : Less Than 3 Seconds Results/Procedures Lab Patient resulted labs reviewed. Assessment/Plan Assessment and Plan Assess & Plan/Chief Complaint Assessment: Subdural hematoma Falls Confusion rapidly progressive type Alcoholism HTN Profound weight loss 155 to 112 in past 6 months Early alcohol withdrawal Hypokalemia Urinary retention Keane cath in place Plan: CT head tomorrow per NSG Seizure meds prophylactically Hold ASA and anticoagulants PT OT Needs SNF versus AL 08/17/2021: Keane cath DC but required replacement Early alcohol withdrawal suspected Supportive care 08/18/21: Monitor closely ETOH withdrawal Supp K+ 08/19/21: Appreciate Dr Arredondo Poor prognosis Diagnosis/Problems Diagnosis/Problems (1) Subacute subdural hematoma Status: Acute (2) Frequent falls Status: Acute (3) Syncope Status: Acute Qualifiers: Syncope type: unspecified Qualified Codes: R55 - Syncope and collapse (4) Dementia Status: Acute Qualifiers: Dementia type: associated with alcoholism Dementia behavioral disturbance: without behavioral disturbance Qualified Codes: F10.27 - Alcohol dependence with alcohol-induced persisting dementia (5) Alcohol use disorder, severe, dependence Status: Acute (6) Stressful life event affecting family Status: Acute Clinical Quality Measures DVT/VTE Risk/Contraindication: Contraindications-Pharm: Other *list below* Other: subdural hematoma KRISTEN BROOKS DO Aug 21, 2021 06:05
[2021-08-21 07:44] VITALS: BP 118/71
[2021-08-21] MEDS: FOLIC ACID 1 MG TAB PO SCH (09:22)
[2021-08-21] MEDS: MAGNESIUM OXIDE (MAG-OX)400 MG TAB PO SCH (09:22)
[2021-08-21] MEDS: DOCUSATE SODIUM 100 MG (COLACE) CAP PO SCH (09:22)
[2021-08-21] MEDS: KCL 20 MEQ TAB (K-DUR) PO SCH ×2 (09:22→13:20)
--- NOTE | 2021-08-21 10:05 | Physical Therapy Daily Note ---
PT Daily Note-Current Subjective Patient is in bed with alarm activated. Mental Status Patient Orientation: Confused Transfers SCALE: Activities may be completed with or without assistive devices. 9-Dnmxjmudyj-mytcesn completes the activity by him/herself with no assistance from a helper. 5-Set-up or Clean-up Assistance-helper sets up or cleans up; patient completes activity. [place] assists only prior to or following the activity. 4-Supervision or Touching Assistance-helper provides verbal cues and/or touching/steadying and/or contact guard assistance as patient completes activity. Assistance may be provided throughout the activity or intermittently. 3-Partial/Moderate Assistance-helper does LESS THAN HALF the effort. [place] lifts, holds or supports trunk or limbs, but provides less than half the effort. 2-Substantial/Maximal Assistance-helper does MORE THAN HALF the effort. [place] lifts or holds trunk or limbs and provides more than half the effort. 9-Vipbpkymw-tjvqmy does ALL the effort. Patient does none of the effort to complete the activity. Or, the assistance of 2 or more helpers is required for the patient to complete the activity. If activity was not attempted, code reason: 7-Patient Refused. 9-Not Applicable-not attempted and the patient did not perform the activity before the current illness, exacerbation or injury. 10-Not Attempted due to Environmental Limitations-(lack of equipment, weather restraints, etc.). 88-Not Attempted due to Medical Conditions or Safety Concerns. Lying to Sitting/Side of Bed(Q: 2 Sit to Stand (QC): 3 Chair/Iem-as-Awepy Xfer(QC): 2 Gait Training Distance: 150' Walk 10 feet (QC): 3 Walk 50 ft with 2 Turns(QC): 3 Walk 150 ft (QC): 3 Gait Assistive Device: FWW leads with left LE with shuffle gait sequence Assessment Patient is up in recliner with chair alarm activated. Patient more alert and stable on this date. Continues to display shuffle gait sequence with flexed trunk and bilateral knee posture. PT Penitentiary Goals Resource Protection Specialist Goals PT Penitentiary Goals Time Frame: Aug 26, 2021 Roll Left & Right (QC): 3 Sit to Lying (QC): 3 Lying-Sitting on Side/Bed(QC): 3 Sit to Stand (QC): 3 Chair/Pcp-qi-Ssipk Xfer(QC): 3 Toilet Transfer (QC): 3 Walk 10 feet (QC): 3 Walk 50ft with 2 Turns (QC): 3 PT Plan Treatment/Plan Treatment Plan: Continue Plan of Care Treatment Plan: Bed Mobility, Education, Functional Activity Del, Functional Strength, Gait, Safety, Therapeutic Exercise, Transfers Treatment Duration: Aug 26, 2021 Frequency: 6 times per week Estimated Hrs Per Day: .25 hour per day Time/GCodes Time In: 905 Time Out: 923 Total Billed Treatment Time: 18 Total Billed Treatment 1 visit FA 18 min REYNALDO PARISI PT Aug 21, 2021 10:05
--- NOTE | 2021-08-21 10:08 | Occupational Ther Daily Note ---
OT Current Status-Daily Note Subjective Pt alert, sitting in recliner. Pt agrees to work with SAMANO. No c/o pain. Mental Status/Objective Patient Orientation: Person, Place, Time, Situation ADL-Treatment Pt requires assist to set up meal and cues to keep focused on eating breakfast due to falling asleep. Pt able to use regular utensils to stab food and bring to mouth with either hand then using R hand to grasp cup and bring to mouth. Pt takes increased time to complete task due to falling asleep and time to chew/swallow food. After therapy, pt sitting in recliner with call light/phone in reach. Nrsg in room. Safety measures in place. Therapy Code Descriptions/Definitions Functional [place] Measure: 0=Not Assessed/NA 4=Minimal Assistance 1=Total Assistance 5=Supervision or Setup 2=Maximal Assistance 6=Modified [place] 3=Moderate Assistance 7=Complete IndependenceSCALE: Activities may be completed with or without assistive devices. 1-Iyjmcrfjdy-rhpddnd completes the activity by him/herself with no assistance from a helper. 5-Set-up or Clean-up Assistance-helper sets up or cleans up; patient completes activity. [place] assists only prior to or following the activity. 4-Supervision or Touching Assistance-helper provides verbal cues and/or touching/steadying and/or contact guard assistance as patient completes activity. Assistance may be provided throughout the activity or intermittently. 3-Partial/Moderate Assistance-helper does LESS THAN HALF the effort. [place] lifts, holds or supports trunk or limbs, but provides less than half the effort. 2-Substantial/Maximal Assistance-helper does MORE THAN HALF the effort. [place] lifts or holds trunk or limbs and provides more than half the effort. 9-Lbmykfosc-adniie does ALL the effort. Patient does none of the effort to complete the activity. Or, the assistance of 2 or more helpers is required for the patient to complete the activity. If activity was not attempted, code reason: 7-Patient Refused. 9-Not Applicable-not attempted and the patient did not perform the activity before the current illness, exacerbation or injury. 10-Not Attempted due to Environmental Limitations-(lack of equipment, weather restraints, etc.). 88-Not Attempted due to Medical Conditions or Safety Concerns. Eating (QC): 4 OT Usp Goals Usp Goals Time Frame: Aug 25, 2021 Eating (QC): 5 Oral Hygiene (QC): 4 Toileting Hygiene (QC): 3 Shower/Bathe Self (QC): 3 Upper Body Dressing (QC): 4 Lower Body Dressing (QC): 3 On/Off Footwear (QC): 3 Additional Goals: 1-Demonstrate ADL Tasks, 2-Verbalize Understanding, 3- ImproveStrength/Del 1=Demonstrate adherence to instructed precautions during ADL tasks. 2=Patient will verbalize/demonstrate understanding of assistive devices/ modifications for ADL. 3=Patient will improve strength/tolerance for activity to enable patient to perform ADL's. OT Education/Plan Problem List/Assessment Assessment: Decreased Activ Tolerance, Decreased Safety Aware, Impaired Self- Care Skills Discharge Recommendations Plan/Recommendations: Continue POC Treatment Plan/Plan of Care Patient would benefit from OT for education, treatment and training to promote independence in ADL's, mobility, safety and/or upper extremity function for ADL's. Plan of Care: ADL Retraining, Functional Mobility, UE Funct Exercise/Act Treatment Duration: Aug 25, 2021 Frequency: 3 times per week (3-5 times per week) Estimated Hrs Per Day: .25 hour per day Rehab Potential: Guarded Time/GCodes Start Time: 09:00 Stop Time: 09:24 Total Time Billed (hr/min): 24 Billed Treatment Time 1 visit-ADL 2 (24 min) THONY HARVEY Aug 21, 2021 10:08
[2021-08-21] MEDS ORDERED: MULT-1137 PO (10:24)
[2021-08-21] MEDS ORDERED: LEVE500T6 PO (10:24)
[2021-08-21] MEDS ORDERED: SENN1TAB76 PO (10:24)
[2021-08-21] MEDS ORDERED: TMSL.4C PO (10:24)
--- NOTE | 2021-08-21 10:25 | Discharge Inst-Skilled Nursing ---
Discharge Inst-Skilled NF Reconcile Patient Problems Problems Reviewed?: Yes Chief Complaint CC: Falls with syncope and subdural hematoma subacute HPI: This is a 71yoWM clinic patient of mine who has had a progressive decline in the past 6 months since he and his [place]. He has lost 45 pounds since this major life event occurred even though I was seeing him in the office frequently. He has had a progressive mental decline also. I had an in-depth conversation last time I saw him in clinic on 06/05/21 and he made it clear his son Conrado was his primary decision maker and I recommended he designate him as his DPOA and I took down his son's phone number and he called Conrado while I was in the room during the visit and my scribe witnessed the conversation and documented such and explained Conrado son would be that designated person and Conrado agreed. He had multiple falls during a shower today and was brought to the ER via EMS which revealed a subdural hematoma which was subacute and NSG recommended conservative management. Patient Instructions Patient Problems: Alcoholism Debility Urinary retention Keane in place Goal: Ney Consult/Follow Up/Orders Follow Up Appt.: Dr Luevano/Kayli Tirado will keep him on NH service Skilled NF Admit to: Via [facility] Emergency Department Certification (SNF) I certify that SNF services are required to be given on an inpatient basis because of the above named patient's need for senior care care on a continuing basis for the conditions(s) for which he/she was receiving inpatient hospital services prior to his/her transfer to the SNF. Group Home Facility Order: Nursing Services, Waiter/Waitress Second Class-Evaluate & Treat, Physical Therapy-Evaluate & Treat, Speech Language-Evaluate & Treat Oxygen Delivery Method: Room Air Discharge Diet: No Restrictions Resuscitation Status: Full Code New & Resume Previous Orders New Medications: Levetiracetam (Levetiracetam) 500 Mg Tablet 500 MG PO BID, #60 TAB Multivitamin/Iron/Folic Acid (Tab-A-Celena Multivit with Iron) 18 Mg Iron-400 Mcg Tablet 1 EA PO DAILY@0700, #30 TAB Sennosides/Docusate Sodium (Stool Softener-Laxative Tablet) 8.6 Mg-50 Mg Tablet 2 EA PO BID PRN for CONSTIPATION-5TH LINE, #30 TAB Tamsulosin HCl (Flomax) 0.4 Mg Cap 0.4 MG PO DAILY@1800, #30 CAP Steffi Luevano Aug 21, 2021 10:25 STEFFI LUEVANO DO Aug 21, 2021 10:25
--- NOTE | 2021-08-21 10:26 | Discharge Summary ---
Discharge Summary Hospital Course Was the Problem List Reviewed?: Yes Problems/Dx: (1) Subacute subdural hematoma Status: Acute (2) Frequent falls Status: Acute (3) Syncope Status: Acute Qualifiers: Qualified Codes: R55 - Syncope and collapse (4) Dementia Status: Acute Qualifiers: Qualified Codes: F10.27 - Alcohol dependence with alcohol-induced persisting dementia (5) Alcohol use disorder, severe, dependence Status: Acute (6) Stressful life event affecting family Status: Acute Hospital Course Date of Admission: Aug 18, 2021 at 12:20 Admission Diagnosis : Family Physician/Provider: Emeterio Hernández DO Date of Discharge: 08/21/21 Discharge Diagnosis: Subdural hematoma, severe alcoholism with alcohol withdrawal, severe debility, weight loss 45 pounds in 6 months Hospital Course: Pt had a lengthy hospital stay for 4 days after he was admitted for falls and alcohol withdrawal. He was found to have a subdural hematoma. Repeat CT showed no advanced progression of the subdural hematoma. He was since stabilized. IV fluids hep locked. Keane catheter remained due to urinary retention. We will attempt to do skilled care. He appears to be more of a hospice candidate if this continues the natural course. He will be on my snf service. Labs and Pending Lab Test: Laboratory Tests 08/21/21 05:25: White Blood Count 6.8, Red Blood Count 3.85L, Hemoglobin 13.1L, Hematocrit 38L, Mean Corpuscular Volume 98, Mean Corpuscular Hemoglobin 34, Mean Corpuscular Hemoglobin Concent 35, Red Cell Distribution Width 13.2, Platelet Count 253, Mean Platelet Volume 9.7, Immature Granulocyte % (Auto) 1, Neutrophils (%) (Auto) 71, Lymphocytes (%) (Auto) 14, Monocytes (%) (Auto) 14H, Eosinophils (%) (Auto) 1, Basophils (%) (Auto) 0, Neutrophils # (Auto) 4.8, Lymphocytes # (Auto) 0.9L, Monocytes # (Auto) 0.9, Eosinophils # (Auto) 0.0, Basophils # (Auto) 0.0, Immature Granulocyte # (Auto) 0.0, Sodium Level 131L, Potassium Level 5.1H, Chloride Level 103, Carbon Dioxide Level 19L, Anion Gap 9, Blood Urea Nitrogen 17, Creatinine 1.18, Estimat Glomerular Filtration Rate 66, BUN/Creatinine Ratio 14, Glucose Level 108H, Calcium Level 9.5, Corrected Calcium 10.2H, Total Bilirubin 1.2H, Aspartate Amino Transf (AST/SGOT) 80H, Alanine Aminotransferase (ALT/SGPT) 68H, Alkaline Phosphatase 138H, Total Protein 6.2L, Albumin 3.1L Home Meds Active Tab-A-Celena Multivit with Iron (Multivitamin/Iron/Folic Acid) 18 Mg Iron-400 Mcg Tablet 1 Ea PO DAILY@0700 Stool Softener-Laxative Tablet (Sennosides/Docusate Sodium) 8.6 Mg-50 Mg Tablet 2 Ea PO BID PRN Levetiracetam 500 Mg Tablet 500 Mg PO BID Flomax (Tamsulosin HCl) 0.4 Mg Cap 0.4 Mg PO DAILY@1800 Assessment/Pt Instructions long term rounds at [facility] by Dr. Brooks and Kayli Tirado Discharge Planning: <30 minutes discharge planning Discharge Instructions Discharge Diet: No Restrictions Discharge Physical Examination Vital Signs Vital Signs Date Time Temp Pulse Resp B/P (MAP) Pulse Ox O2 Delivery O2 Flow Rate FiO2 08/21/21 07:44 36.2 101 17 118/71 (87) 96 Room Air General Appearance: No Apparent Distress, WD/WN, Chronically ill, Thin Neurologic/Psychiatric: Alert, Oriented x3, Disoriented Allergies: Coded Allergies: No Known Drug Allergies (Unverified , 08/16/21) Discharge Summary Date of Admission Aug 18, 2021 at 12:20 Date of Discharge Discharge Date: Aug 21, 2021 Admission Diagnosis Assessment: Subdural hematoma Falls Confusion rapidly progressive type Alcoholism HTN Profound weight loss 155 to 112 in past 6 months Plan: CT head tomorrow per NSG Seizure meds prophylactically Hold ASA and anticoagulants PT OT Needs SNF versus [place] Discharge Diagnosis Assessment: Subdural hematoma Falls Confusion rapidly progressive type Alcoholism HTN Profound weight loss 155 to 112 in past 6 months Early alcohol withdrawal Hypokalemia Urinary retention Keane cath in place Plan: CT head tomorrow per NSG Seizure meds prophylactically Hold ASA and anticoagulants PT OT Needs SNF versus [place] 08/17/2021: Keane cath DC but required replacement Early alcohol withdrawal suspected Supportive care 08/18/21: Monitor closely ETOH withdrawal Supp K+ 08/19/21: Appreciate Dr Arredondo Poor prognosis (1) Subacute subdural hematoma Status: Acute (2) Frequent falls Status: Acute (3) Syncope Status: Acute Qualifiers: Qualified Codes: R55 - Syncope and collapse (4) Dementia Status: Acute Qualifiers: Qualified Codes: F10.27 - Alcohol dependence with alcohol-induced persisting dementia (5) Alcohol use disorder, severe, dependence Status: Acute (6) Stressful life event affecting family Status: Acute Clinical Quality Measures DVT/VTE Risk/Contraindication: Contraindications-Pharm: Other *list below* Other: subdural hematoma KRISTEN BROOKS DO Aug 21, 2021 10:26
[2021-08-21 11:33] VITALS: BP 104/63
[2021-08-21 14:03] VITALS: BP 104/63
== END 2021-08-21 16:14 | DRG 86 ==
LOC: EDUNIT# 12:13 → ER 12:15 → 4TH 14:27 → OBSVTOIN 08-18 12:20
PROVIDERS: ADMIT Internal Medicine; ATTEND Internal Medicine
DX: S06.5X0A Traumatic subdural hemorrhage without loss of consciousness, initial encounter (principal); F10.27 Alcohol dependence with alcohol-induced persisting dementia; F10.239 Alcohol dependence with withdrawal, unspecified; Z68.1 Body mass index [BMI] 19.9 or less, adult; R40.2412 Glasgow coma scale score 13-15, at arrival to emergency department; W18.30XA Fall on same level, unspecified, initial encounter; R63.4 Abnormal weight loss; R33.9 Retention of urine, unspecified; E87.6 Hypokalemia; F43.9 Reaction to severe stress, unspecified; R53.81 Other malaise
CPT/HCPCS: 36415; 70450; 71045; 72125; 80053; 80306; 80320; 81000; 83735; 84443; 84484; 85025; 85610; 85730; 86141; 93005; G0378

== ENCOUNTER 2021-09-21 23:08 | Inpatient (IN) | payer MEDICARE, OTHER ==
[~2021-09-21] VITALS: Ht 165.1 cm; Wt 50.5 kg
[~2021-09-21 23:08] MED LIST changes: +LEVE500T6 PO; +MULT-1137 PO; +SENN1TAB76 PO; +TMSL.4C PO
[2021-09-21] MEDS ORDERED: NS IV 1000 ML 1,000 ML IV SCH (23:15)
[2021-09-21 23:27] LABS: BASOPHILS % (AUTO) 0 % (0-10); EOSINOPHILS % (AUTO) 0 % (0-10); HEMATOCRIT 35 % (40-54); HEMOGLOBIN 11.9 g/dL (13.3-17.7); LYMPHOCYTES # (AUTO) 0.8 10^3/uL (1.0-4.0); LYMPHOCYTES % (AUTO) 7 % (12-44); MEAN CORPUSCULAR HEMOGLOBIN 33 pg (25-34); MEAN CORPUSCULAR HGB CONC 34 g/dL (32-36); MEAN CORPUSCULAR VOLUME 96 fL (80-99); MEAN PLATELET VOLUME 9.9 fL (9.0-12.2); MONOCYTES # (AUTO) 1.5 10^3/uL (0.0-1.0); MONOCYTES % (AUTO) 14 % (0-12); NEUTROPHILS # (AUTO) 8.2 10^3/uL (1.8-7.8); NEUTROPHILS % (AUTO) 78 % (42-75); PLATELET COUNT 232 10^3/uL (130-400); WHITE BLOOD COUNT 10.5 10^3/uL (4.3-11.0)
[2021-09-21 23:35] LABS: BILIRUBIN,URINE 1+ (NEGATIVE); CLARITY,URINE CLEAR; COLOR,URINE YELLOW; GLUCOSE, URINE (UA) NEGATIVE (NEGATIVE); KETONES,URINE 2+ (NEGATIVE); LEUKOCYTE ESTERASE ,URINE NEGATIVE (NEGATIVE); NITRITE,URINE NEGATIVE (NEGATIVE); PROTEIN,URINE TRACE (NEGATIVE)
[2021-09-21 23:37] LABS: ALBUMIN 3.3 GM/DL (3.2-4.5); INR 1.3 (0.8-1.4); PROTHROMBIN TIME PATIENT 16.6 SEC (12.2-14.7)
[2021-09-21 23:38] LABS: POTASSIUM 3.8 MMOL/L (3.6-5.0)
[2021-09-21 23:40] LABS: LYMPHOCYTES % (MANUAL) 4 %; NEUTROPHILS % (MANUAL) 89 %; TOTAL PROTEIN 6.6 GM/DL (6.4-8.2)
[2021-09-21 23:41] LABS: MONOCYTES % (MANUAL) 7 %; RBC MORPH NORMAL
[2021-09-21 23:42] LABS: BILIRUBIN,TOTAL 1.4 MG/DL (0.1-1.0)
[2021-09-21 23:43] LABS: BACTERIA,URINE TRACE /HPF; RBC,URINE 0-2 /HPF
[2021-09-21 23:44] LABS: CREATININE SERUM 1.06 MG/DL (0.60-1.30)
[2021-09-21] MEDS ORDERED: ACETAMINOPHEN 650 MG SUPP (TYLENOL) PR ONE (23:45)
--- NOTE | 2021-09-21 23:50 | ED General ---
General Chief Complaint: Altered Mental Status Stated Complaint: AMS Source of Information: EMS, Group Home Records Exam Limitations: Physical Impairments History of Present Illness Date Seen by Provider: Sep 21, 2021 Time Seen by Provider: 23:30 Initial Comments Patient is a 71-year-old male who resides in a local [facility], sent to the emergency department this evening with a chief complaint of altered mental status, poor responsiveness. Patient apparently just got out of COVID quarantine 13 September. He has a history of alcohol induced dementia. He is normally up and ambulatory with a rolling walker at the prison and was sober until yesterday. Today he slept through meals, was difficult to arouse a nd therefore sent for evaluation. On arrival the patient is protecting his airway with a gag response. He does not with respond to his name, will not open his eyes. Anytime he is significantly manipulated such as putting in the Keane catheter he says "shit shit shit". When I manipulated his left arm he also moaned. He obviously has some erythema over the dorsum of the left forearm with some open wounds consistent with skin tears and abrasions. Otherwise generally his skin looks very good. His oral mucosa is very dry. He has several necrotic teeth. His pupils are about 3 mm and equal bilaterally. No respiratory distress. He is tachycardic in the 110-120 range. Blood pressure is adequate. No immediate family is available for further history, review of systems, past medical family or social history. The majority of this is obtained from the prison records sent with the patient. Timing/Duration: 12 Hours Severity: Severe Allergies and Home Medications Allergies Coded Allergies: No Known Drug Allergies (Unverified , 08/16/21) Patient Home Medication List Home Medication List Reviewed: Yes Levetiracetam (Levetiracetam) 500 Mg Tablet, 500 MG PO BID Prescribed by: KRISTEN BROOKS on 08/21/21 1024 Multivitamin/Iron/Folic Acid (Tab-A-Celena Multivit with Iron) 18 Mg Iron-400 Mcg Tablet, 1 EA PO DAILY@0700 Prescribed by: KRISTEN BROOKS on 08/21/21 1024 Sennosides/Docusate Sodium (Stool Softener-Laxative Tablet) 8.6 Mg-50 Mg Tablet, 2 EA PO BID PRN for CONSTIPATION-5TH LINE Prescribed by: KRISTEN BROOKS on 08/21/21 1024 Tamsulosin HCl (Flomax) 0.4 Mg Cap, 0.4 MG PO DAILY@1800 Prescribed by: KRISTEN BROOKS on 08/21/21 1024 Review of Systems Review of Systems Constitutional: see HPI, fever, malaise Unable to Obtain from the patient due to AMS Past Oewkyty-Hiosjw-Jxirkp Hx Immunizations Up To Date First/Initial COVID19 Vaccinat: 2020 Second COVID19 Vaccination Arnaldo: 2020 Third COVID19 Vaccination Date: 2020 Past Medical History Surgery/Hospitalization HX: HYPERTENSION, RECENT FALLS Hypertension Physical Exam-Suspected Sepsis Physical Exam Vital Signs Vital Signs - First Documented Capillary Refill : Height, Weight, BMI Height: '" Weight: lbs. oz. kg; 18.98 BMI Method: General Appearance: Chronically ill, Thin Eyes: Bilateral Eye Normal Inspection, Bilateral Eye PERRL, Bilateral Eye EOMI HEENT: Other (Pupils equal at 3mm - cannot assess EOM; dry mucous membranes. several necrotis teeth to the gum line - no gingival erythema or swelling or drainage) Neck: Normal Inspection, Supple Respiratory: Lungs Clear, Normal Breath Sounds, No Accessory Muscle Use, No Respiratory Distress Cardiovascular: Regular Rate, Rhythm, Normal Peripheral Pulses, Tachycardia (110-120) Gastrointestinal: Normal Bowel Sounds, Non Tender, Soft Back: Normal Inspection Extremity: Other (Left upper extremity with mild swelling, erythema (no lymphangitic streaking); multiple open wounds/sking tears/abrasions without purulence; no lower extremity edema) Neurologic/Psychiatric: Other (AMS - responsive to pain with grimaces and articulation but will not open eyes to command or follow commands - unable to otherwise assess) Skin: normal color, warm/dry Focused Exam Lactate Level 09/21/21 23:15: Lactic Acid Level 1.13 Lactic Acid Level Laboratory Tests Test 09/21/21 23:15 Lactic Acid Level 1.13 MMOL/L (0.50-2.00) Progress/Results/Core Measures Suspected Sepsis SIRS Temperature: Pulse: Respiratory Rate: Laboratory Tests 09/21/21 23:15: White Blood Count 10.5 Blood Pressure / Mean: 09/21/21 23:15: Lactic Acid Level 1.13 Laboratory Tests 09/21/21 23:15: Creatinine 1.06, INR Comment 1.3, Platelet Count 232, Total Bilirubin 1.4H Results/Orders Lab Results Laboratory Tests Test 09/21/21 23:15 09/21/21 23:21 09/21/21 23:29 09/21/21 23:39 Range/Units White Blood Count 10.5 4.3-11.0 10^3/uL Red Blood Count 3.64 L 4.30-5.52 10^6/uL Hemoglobin 11.9 L 13.3-17.7 g/dL Hematocrit 35 L 40-54 % Mean Corpuscular Volume 96 80-99 fL Mean Corpuscular Hemoglobin 33 25-34 pg Mean Corpuscular Hemoglobin Concent 34 32-36 g/dL Red Cell Distribution Width 12.1 10.0-14.5 % Platelet Count 232 130-400 10^3/uL Mean Platelet Volume 9.9 9.0-12.2 fL Immature Granulocyte % (Auto) 0 % Neutrophils (%) (Auto) 78 H 42-75 % Lymphocytes (%) (Auto) 7 L 12-44 % Monocytes (%) (Auto) 14 H 0-12 % Eosinophils (%) (Auto) 0 0-10 % Basophils (%) (Auto) 0 0-10 % Neutrophils # (Auto) 8.2 H 1.8-7.8 10^3/uL Lymphocytes # (Auto) 0.8 L 1.0-4.0 10^3/uL Monocytes # (Auto) 1.5 H 0.0-1.0 10^3/uL Eosinophils # (Auto) 0.0 0.0-0.3 10^3/uL Basophils # (Auto) 0.0 0.0-0.1 10^3/uL Immature Granulocyte # (Auto) 0.0 0.0-0.1 10^3/uL Neutrophils % (Manual) 89 % Lymphocytes % (Manual) 4 % Monocytes % (Manual) 7 % Blood Morphology Comment NORMAL Prothrombin Time 16.6 H 12.2-14.7 SEC INR Comment 1.3 0.8-1.4 Activated Partial Thromboplast Time 28 24-35 SEC Sodium Level 136 135-145 MMOL/L Potassium Level 3.8 3.6-5.0 MMOL/L Chloride Level 105 98-107 MMOL/L Carbon Dioxide Level 16 L 21-32 MMOL/L Anion Gap 15 H 5-14 MMOL/L Blood Urea Nitrogen 15 7-18 MG/DL Creatinine 1.06 0.60-1.30 MG/DL Estimat Glomerular Filtration Rate 75 BUN/Creatinine Ratio 14 Glucose Level 111 H 70-105 MG/DL Lactic Acid Level 1.13 0.50-2.00 MMOL/L Calcium Level 9.0 8.5-10.1 MG/DL Corrected Calcium 9.6 8.5-10.1 MG/DL Magnesium Level 2.0 1.6-2.4 MG/DL Total Bilirubin 1.4 H 0.1-1.0 MG/DL Aspartate Amino Transf (AST/SGOT) 29 5-34 U/L Alanine Aminotransferase (ALT/SGPT) 26 0-55 U/L Alkaline Phosphatase 109 40-136 U/L C-Reactive Protein High Sensitivity 8.29 H 0.00-0.50 MG/DL Total Protein 6.6 6.4-8.2 GM/DL Albumin 3.3 3.2-4.5 GM/DL Procalcitonin 0.40 H <0.10 NG/ML Glucometer 107 70-110 MG/DL Urine Color YELLOW Urine Clarity CLEAR Urine pH 6.0 5-9 Urine Specific [place] 1.020 1.016-1.022 Urine Protein TRACE H NEGATIVE Urine Glucose (UA) NEGATIVE NEGATIVE Urine Ketones 2+ H NEGATIVE Urine Nitrite NEGATIVE NEGATIVE Urine Bilirubin 1+ H NEGATIVE Urine Urobilinogen 1.0 < = 1.0 MG/DL Urine Leukocyte Esterase NEGATIVE NEGATIVE Urine RBC (Auto) TRACE-I H NEGATIVE Urine RBC 0-2 /HPF Urine WBC NONE /HPF Urine Crystals NONE /LPF Urine Bacteria TRACE /HPF Urine Casts NONE /LPF Urine Mucus NEGATIVE /LPF Urine Culture Indicated CULTURE PENDING Influenza Type A (RT-PCR) Not Detected Not Detecte Influenza Type B (RT-PCR) Not Detected Not Detecte SARS-CoV-2 RNA (RT-PCR) Not Detected Not Detecte My Orders Orders - EMIR TAYLOR MD Keane Cath (09/21/21 23:27) Ekg Tracing (09/21/21 23:27) Covid 19 Inhouse Test (09/21/21 23:43) Influenza A And B By Pcr (09/21/21 23:43) Isolation Central Supply Req (09/21/21 23:43) Acetaminophen Suppository (Tylenol Suppo (09/21/21 23:45) Hs C Reactive Protein (09/21/21 23:55) Cefazolin 2 Gm Iv Premixed (Ancef 2 Gm P (09/22/21 00:15) Vancomycin Injection (Vancomycin Injecti (09/22/21 00:15) Ct Head Wo (09/22/21 00:05) Magnesium (09/22/21 00:05) Medications Given in ED Current Medications Medications Dose Ordered Sig/Shasha Route Start Time Stop Time Status Last Admin Dose Admin Acetaminophen 650 mg ONCE ONCE [place] 09/21/21 23:45 09/21/21 23:46 DC 09/21/21 23:57 650 MG Vital Signs/I&O 09/21/21 09/21/21 09/21/21 23:10 23:10 23:57 Temp 38.4 38.4 Pulse 119 Resp 16 B/P (MAP) 90/68 (75) Pulse Ox 95 O2 Delivery Room Air Room Air 09/22/21 00:00 Intake Total 300 ml Balance 300 ml Capillary Refill : ECG Initial ECG Impression Date: Sep 21, 2021 Initial ECG Impression Time: 23:35 Initial ECG Rate: 106 Initial ECG Rhythm: S.Tach Initial ECG Intervals [place] 145 QRS 74 QTc 357 Comment Underlying sinus rhythm with occ PVC (narrow) Departure Communication (Admissions) Time/Spoke to Admitting Phy: 01:[address] Mariee Impression Primary Impression: Sepsis Qualified Codes: A41.9 - Sepsis, unspecified organism Additional Impression: Cellulitis of arm, left Disposition: ADMITTED INPATIENT Condition: Stable Admissions Decision to Admit Reason: Admit from ER (General) Decision to Admit/Date: Sep 22, 2021 Time/Decision to Admit Time: 01:11 Departure-Patient Inst. Referrals: [facility] DO (PCP/Family) Primary Care Physician EMIR TAYLOR MD Sep 21, 2021 23:50
[2021-09-22] MEDS ORDERED: VANCOMYCIN INJECTION 1,000 MG in NS (IVPB) 250 ML IV ONE (00:15)
[2021-09-22] MEDS ORDERED: ceFAZolin 2 GM IV Premixed 50 ML IV ONE (00:15)
[2021-09-22] MEDS ORDERED: NS IV 1000 ML 1,000 ML ONE (02:25)
[2021-09-22] MEDS: NS IV 1000 ML 1,000 ML IV SCH ×3 (02:26→23:08)
[2021-09-22 02:49] VITALS: BP 112/79
[2021-09-22] MEDS ORDERED: RT-ALBUTEROL/IPRATROPIUM 3 ML (DUONEB) VIAL INH PRN (03:15)
[2021-09-22] MEDS ORDERED: ACETAMINOPHEN 650 MG SUPP (TYLENOL) PR PRN (03:45)
[2021-09-22 04:25] VITALS: BP 142/80
[2021-09-22 05:44] LABS: BASOPHILS % (AUTO) 0 % (0-10); EOSINOPHILS % (AUTO) 0 % (0-10); HEMATOCRIT 33 % (40-54); HEMOGLOBIN 11.1 g/dL (13.3-17.7); LYMPHOCYTES # (AUTO) 1.4 10^3/uL (1.0-4.0); LYMPHOCYTES % (AUTO) 13 % (12-44); MEAN CORPUSCULAR HEMOGLOBIN 33 pg (25-34); MEAN CORPUSCULAR HGB CONC 34 g/dL (32-36); MEAN CORPUSCULAR VOLUME 97 fL (80-99); MEAN PLATELET VOLUME 9.9 fL (9.0-12.2); MONOCYTES % (AUTO) 18 % (0-12); NEUTROPHILS # (AUTO) 7.4 10^3/uL (1.8-7.8); NEUTROPHILS % (AUTO) 68 % (42-75); PLATELET COUNT 205 10^3/uL (130-400); WHITE BLOOD COUNT 10.8 10^3/uL (4.3-11.0)
[2021-09-22 05:57] LABS: POTASSIUM 3.5 MMOL/L (3.6-5.0)
[2021-09-22 05:58] LABS: CALCIUM 8.5 MG/DL (8.5-10.1)
[2021-09-22 06:02] LABS: CREATININE SERUM 0.87 MG/DL (0.60-1.30)
--- NOTE | 2021-09-22 06:41 | Diagnostic Imaging Report ---
EXAMINATION: Chest 1 view HISTORY: Fever COMPARISON: 08/16/2021 FINDINGS: Heart size and pulmonary vasculature are normal. The lungs are clear without consolidation, pleural effusion, or pneumothorax. The osseous structures are intact. IMPRESSION: 1. No acute radiographic abnormality in the chest. Dictated by: Dictated on workstation # [id number]
--- NOTE | 2021-09-22 07:00 | Diagnostic Imaging Report ---
EXAMINATION: CT head without contrast. TECHNIQUE: Multiple contiguous axial images were obtained through the brain without the use of intravenous contrast. All CT scans use one or more of the following dose optimizing techniques: automated exposure control, MA and/or KvP adjustment based on patient size and exam type or iterative reconstruction. HISTORY: Altered mental status, fever COMPARISON: 08/17/2021 FINDINGS: Mild diffuse cerebral volume loss with proportional enlargement of the ventricles and sulci. Mild hypodensities throughout the supratentorial white matter of both cerebral hemispheres. Chronic left basal ganglia lacunar infarct versus perivascular space. No acute intracranial hemorrhage or abnormal extra-axial fluid collections are present. Calcification of the intracranial ICAs. No hyperdense vessel. The calvarium is intact. The mastoid air cells are clear. The visualized paranasal sinuses are clear. The orbits are normal. IMPRESSION: 1. No acute intracranial abnormality. 2. Chronic microangiopathy and volume loss. 3. Agree with preliminary interpretation. Dictated by: Dictated on workstation # [id number]
[2021-09-22 08:14] VITALS: BP 141/85
[2021-09-22] MEDS: ceFAZolin 2 GM/50 ML (PRE-MIXED) IV SCH ×2 (08:21→17:08)
[2021-09-22] MEDS ORDERED: ENOXAPARIN 40 MG/0.4 ML (LOVENOX) SYR SC SCH (11:00)
[2021-09-22] MEDS ORDERED: diphenhydrAMINE 25 MG TAB (BENADRYL) PO PRN (11:00)
[2021-09-22] MEDS ORDERED: DOCUSATE SODIUM 100 MG (COLACE) CAP PO PRN (11:00)
[2021-09-22] MEDS ORDERED: CALCIUM CARBONATE 500 MG (TUMS) TAB.CHEW PO PRN (11:00)
[2021-09-22] MEDS ORDERED: ACETAMINOPHEN 325 MG TABLET PO PRN (11:00)
[2021-09-22] MEDS ORDERED: LOPERAMIDE 2 MG (IMODIUM) TABLET PO PRN (11:00)
[2021-09-22] MEDS ORDERED: HYDROcodone/APAP 5 MG/325 MG (LORTAB) TAB PO PRN (11:00)
[2021-09-22] MEDS ORDERED: ONDANSETRON 4 MG/2 ML (SDV) Z0FRAN IVP PRN (11:00)
[2021-09-22] MEDS ORDERED: LACTULOSE SYRUP 10GM/15ML (ENULOSE) 30ML UDC PO PRN (11:00)
[2021-09-22] MEDS ORDERED: MELATONIN 3 MG TABLET PO PRN (11:00)
[2021-09-22] MEDS ORDERED: ALPRAZolam 0.25 MG (XANAX) TAB PO PRN (11:00)
[2021-09-22] MEDS: ENOXAPARIN INJECTION 30 MG/0.3 ML SYR SC SCH (11:14)
[2021-09-22] MEDS ORDERED: LEVE500T99 PO (11:29)
[2021-09-22] MEDS ORDERED: SENN-145 PO (11:29)
[2021-09-22] MEDS ORDERED: MULT-1076 PO (11:29)
[2021-09-22] MEDS ORDERED: TMSL.4C PO (11:29)
--- NOTE | 2021-09-22 11:46 | History & Physical ---
BERHANERenatoARIANE LUNA 09/22/21 1146: History of Present Illness History of Present Illness Reason for visit/HPI Levi Donnelly is a 71-year-old male who resides in a local half-way, who was sent to the emergency department this evening with a chief complaint of altered mental status and poor responsiveness. Patient just recently had COVID with his quarantine ending 13 September. He has a history of alcohol induced dementia. He is normally up and ambulatory with a rolling walker at the half-way and was sober until yesterday. Today he slept through meals, was difficult to arouse and therefore sent for evaluation. In the ED the patient was protecting his airway with a gag response but did not respond to his name and would not open his eyes. The ED reported finding erythema over the dorsum of the left forearm with some open wounds consistent with skin tears and abrasions, dry oral mucosa, and several necrotic teeth. Today the patient is lying comfortably in bed and able to communicate. He is unable to answer where he is or why, but denies being in any pain. Date of Admission Sep 22, 2021 at 01:07 Date Seen by a Provider: Sep 22, 2021 Time Seen by a Provider: 10:00 I consulted on this patient on 09/22/21 11:40 Attending Physician Emeterio Hernández DO Admitting Physician Admitting Physician: Josue Mariee MD Attending Physician: Steffi Brooks DO Consult Allergies and Home Medications Allergies Coded Allergies: No Known Drug Allergies (Unverified , 09/22/21) Patient Home Medication List Levetiracetam (Keppra) 500 Mg Tablet, 500 MG PO BID, (Reported) Entered as Reported by: ADRIANA WOODSON on 09/22/211128 Last Action: Reviewed Multivitamin/Iron/Folic Acid (Multivitamin with Iron Tablet) 18 Mg Iron-400 Mcg Tablet, 1 EACH PO DAILY, (Reported) Entered as Reported by: ADRAINA WOODSON on 09/22/211128 Last Action: Reviewed Sennosides/Docusate Sodium (Senna S Tablet) 8.6 Mg-50 Mg Tablet, 2 EACH PO DAILY PRN for CONSTIPATION-5TH LINE, (Reported) Entered as Reported by: ADRIANA WOODSON on 09/22/211128 Last Action: Reviewed Tamsulosin HCl (Flomax) 0.4 Mg Cap, 0.4 MG PO 1800, (Reported) Entered as Reported by: ADRIANA WOODSON on 09/22/21 1129 Last Action: Reviewed Discontinued Medications Levetiracetam (Levetiracetam) 500 Mg Tablet, 500 MG PO BID Discontinued Reason: Duplicate Order Prescribed by: STEFFI BROOKS on 08/21/21 1024 Last Action: Discontinued Multivitamin/Iron/Folic Acid (Tab-A-Celena Multivit with Iron) 18 Mg Iron-400 Mcg Tablet, 1 EA PO DAILY@0700 Discontinued Reason: Duplicate Order Prescribed by: STEFFI BROOKS on 08/21/21 1024 Last Action: Discontinued Sennosides/Docusate Sodium (Stool Softener-Laxative Tablet) 8.6 Mg-50 Mg Tablet, 2 EA PO BID PRN for CONSTIPATION-5TH LINE Discontinued Reason: Duplicate Order Prescribed by: STEFFI BROOKS on 08/21/21 1024 Last Action: Discontinued Tamsulosin HCl (Flomax) 0.4 Mg Cap, 0.4 MG PO DAILY@1800 Discontinued Reason: Duplicate Order Prescribed by: STEFFI BROOKS on 08/21/21 1024 Last Action: Discontinued Past Rtgixcr-Tclozh-Prfxer Hx Patient Social History Alcohol Use?: Yes Pt feels they are or have been: Unable to obtain Immunizations Up To Date First/Initial COVID19 Vaccinat: 2020 Second COVID19 Vaccination Arnaldo: 2020 Tetanus Booster (TDap): Unknown Hepatitis A: No Hepatitis B: No Current Status Advance Directives: Unable to obtain Primary Language: Greenlandic Preferred Spoken Language: Greenlandic Past Medical History Hypertension Nursing Suicide Risk Notes: ANSWERS BASED ON PT PRESENTING TO ER WITH AMS, MINIMALLY RESPONSIVE. Review of Systems ROS-Unable to Obtain: Unable to obtain due to patient's mental status Physical Exam Vital Signs Vital Signs - First Documented 09/22/21 02:49 FiO2 21 Capillary Refill : Greater Than 3 Seconds Height, Weight, BMI Height: '" Weight: lbs. oz. kg; 18.98 BMI Method: General Appearance: No Apparent Distress, Chronically ill HEENT: PERRL/EOMI, Moist Mucous Membranes Neck: Normal Inspection, Non Tender, Supple Respiratory: Chest Non Tender, Lungs Clear, Normal Breath Sounds Cardiovascular: Regular Rate, Rhythm, No Edema, No JVD Gastrointestinal: Normal Bowel Sounds, Non Tender Rectal: Deferred Back: No CVA Tenderness Extremity: Normal Capillary Refill, No Calf Tenderness Neurologic/Psychiatric: Alert, Disoriented, Other (pleasantly demented) Skin: Normal Color, Warm/Dry, Other (bandage over left arm. 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 Pt presented to the half-way with altered mental status from [facility] [place]. Pt was found to have left arm skin tear with cellulitis found to have sepsis. Pt was placed on IV antibiotics and IV fluids. Currently he is doing well but he continues to be a hospice candidate. Will need to address that soon. Allergies and Home Medications Allergies Coded Allergies: No Known Drug Allergies (Unverified , 09/22/21) Patient Home Medication List Home Medication List Reviewed: Yes Levetiracetam (Keppra) 500 Mg Tablet, 500 MG PO BID, (Reported) Entered as Reported by: ADRIANA WOODSON on 09/22/211128 Last Action: Reviewed Multivitamin/Iron/Folic Acid (Multivitamin with Iron Tablet) 18 Mg Iron-400 Mcg Tablet, 1 EACH PO DAILY, (Reported) Entered as Reported by: ADRIANA WOODSON on 09/22/211128 Last Action: Reviewed Sennosides/Docusate Sodium (Senna S Tablet) 8.6 Mg-50 Mg Tablet, 2 EACH PO DAILY PRN for CONSTIPATION-5TH LINE, (Reported) Entered as Reported by: ADRIANA WOODSON on 09/22/211128 Last Action: Reviewed Tamsulosin HCl (Flomax) 0.4 Mg Cap, 0.4 MG PO 1800, (Reported) Entered as Reported by: ADRIANA WOODSON on 09/22/211128 Last Action: Reviewed Discontinued Medications Levetiracetam (Levetiracetam) 500 Mg Tablet, 500 MG PO BID Discontinued Reason: Duplicate Order Prescribed by: STEFFI BROOKS on 08/21/21 1024 Last Action: Discontinued Multivitamin/Iron/Folic Acid (Tab-A-Celena Multivit with Iron) 18 Mg Iron-400 Mcg Tablet, 1 EA PO DAILY@0700 Discontinued Reason: Duplicate Order Prescribed by: STEFFI BROOKS on 08/21/21 1024 Last Action: Discontinued Sennosides/Docusate Sodium (Stool Softener-Laxative Tablet) 8.6 Mg-50 Mg Tablet, 2 EA PO BID PRN for CONSTIPATION-5TH LINE Discontinued Reason: Duplicate Order Prescribed by: STEFFI BROOKS on 08/21/21 1024 Last Action: Discontinued Tamsulosin HCl (Flomax) 0.4 Mg Cap, 0.4 MG PO DAILY@1800 Discontinued Reason: Duplicate Order Prescribed by: STEFFI BROOKS on 08/21/21 1024 Last Action: Discontinued Past Oynnztj-Ylouuv-Embmbq Hx Patient Social History Marrital Status: Employed/Student: retired Smoking Status: Former Smoker Past Medical History Hypertension Dementia Review of Systems Constitutional: see HPI Physical Exam General Appearance: Chronically ill Respiratory: Lungs Clear, Normal Breath Sounds Cardiovascular: Regular Rate, Rhythm Assessment/Plan Assessment and Plan Supportive care Needs Hospice Problems: (1) Cellulitis of arm, left Status: Acute (2) Sepsis Status: Acute Qualifiers: Qualified Codes: A41.9 - Sepsis, unspecified organism (3) Dementia Status: Acute Admission Diagnosis Admission Status: Inpatient Order (span 2 midnights) Reason for Inpatient Admission: AMS Supervisory-Addendum Brief Verification & Attestation Participated in pt care: history, MDM, physical Personally performed: exam, history, MDM, supervision of care Care discussed with: Medical Student Procedures: n/a Results interpretation: Verified all documentation Verification and Attestation of Medical Student E/M Service A medical student performed and documented this service in my presence. I reviewed and verified all information documented by the medical student and made modifications to such information, when appropriate. I personally performed the physical exam and medical decision making. Steffi Brooks, Sep 22, 2021,22:12 ARIANE SANTILLAN Sep 22, 2021 11:46 STEFFI BROOKS DO Sep 22, 2021 22:12
[2021-09-22 12:08] VITALS: BP 130/80
[2021-09-22] MEDS: VANCOMYCIN 750 MG/NS 250 ML IVPB IV SCH ×2 (13:09)
[2021-09-22 15:55] VITALS: BP 124/69
[2021-09-22 19:00] VITALS: BP 137/82
[2021-09-22] MEDS: SENNA W/DOCUSATE (SENOKOT S) TABLET PO SCH (20:32)
[2021-09-23] VITALS: BP 138/87
[2021-09-23] MEDS: ceFAZolin 2 GM/50 ML (PRE-MIXED) IV SCH ×2 (01:15→09:11)
[2021-09-23] MEDS: VANCOMYCIN 750 MG/NS 250 ML IVPB IV SCH ×4 (02:17→13:27)
[2021-09-23 04:00] VITALS: BP 152/91
[2021-09-23 06:24] LABS: BASOPHILS % (AUTO) 0 % (0-10); EOSINOPHILS % (AUTO) 0 % (0-10); HEMATOCRIT 34 % (40-54); HEMOGLOBIN 11.8 g/dL (13.3-17.7); LYMPHOCYTES # (AUTO) 1.2 10^3/uL (1.0-4.0); LYMPHOCYTES % (AUTO) 11 % (12-44); MEAN CORPUSCULAR HEMOGLOBIN 33 pg (25-34); MEAN CORPUSCULAR HGB CONC 34 g/dL (32-36); MEAN CORPUSCULAR VOLUME 96 fL (80-99); MEAN PLATELET VOLUME 10.2 fL (9.0-12.2); MONOCYTES # (AUTO) 1.3 10^3/uL (0.0-1.0); MONOCYTES % (AUTO) 13 % (0-12); NEUTROPHILS # (AUTO) 7.6 10^3/uL (1.8-7.8); NEUTROPHILS % (AUTO) 75 % (42-75); PLATELET COUNT 203 10^3/uL (130-400); WHITE BLOOD COUNT 10.1 10^3/uL (4.3-11.0)
[2021-09-23 06:31] LABS: POTASSIUM 3.3 MMOL/L (3.6-5.0)
[2021-09-23 06:32] LABS: CALCIUM 8.7 MG/DL (8.5-10.1)
[2021-09-23 06:33] LABS: TOTAL PROTEIN 6.3 GM/DL (6.4-8.2)
[2021-09-23 06:37] LABS: CREATININE SERUM 0.76 MG/DL (0.60-1.30)
[2021-09-23 08:00] VITALS: BP 149/93
[2021-09-23] MEDS: SENNA W/DOCUSATE (SENOKOT S) TABLET PO SCH ×2 (09:11→20:55)
[2021-09-23] MEDS: ENOXAPARIN INJECTION 30 MG/0.3 ML SYR SC SCH (11:04)
[2021-09-23] MEDS: NS IV 1000 ML 1,000 ML IV SCH (11:04)
[2021-09-23 12:00] VITALS: BP 154/97
[2021-09-23] MEDS ORDERED: TROUGH ORDER-PHARMACY XX ONE (12:00)
--- NOTE | 2021-09-23 13:03 | Progress Note ---
Subjective Date Seen by a Provider: Sep 23, 2021 Time Seen by a Provider: 12:00 Subjective/Events-last exam Patient minimal conversation Declining Will speak to son about hospice at [place] Vanc maintained Review of Systems Neurological: Confusion Focused Exam Lactate Level 09/21/21 23:15: Lactic Acid Level 1.13 Objective Exam Last Set of Vital Signs Vital Signs Date Time Temp Pulse Resp B/P (MAP) Pulse Ox O2 Delivery O2 Flow Rate FiO2 09/23/21 08:49 Room Air 09/23/21 08:00 97 09/23/21 08:00 36.6 101 18 149/93 (111) 09/22/21 02:49 21 Capillary Refill : Greater Than 3 Seconds I&O Intake and Output 09/22/21 23:59 Intake Total 3000 ml Output Total 1500 ml Balance 1500 ml Intake Oral 800 ml IV Total 2200 ml Output Urine Total 1500 ml Daily Weight Change Unsure General: Alert Lungs: Clear to Auscultation Heart: Regular Rate Psych/Mental Status: Other (confused) Results Lab Laboratory Tests 09/23/21 06:15: White Blood Count 10.1, Red Blood Count 3.58L, Hemoglobin 11.8L, Hematocrit 34L, Mean Corpuscular Volume 96, Mean Corpuscular Hemoglobin 33, Mean Corpuscular Hemoglobin Concent 34, Red Cell Distribution Width 11.9, Platelet Count 203, Mean Platelet Volume 10.2, Immature Granulocyte % (Auto) 0, Neutrophils (%) (Auto) 75, Lymphocytes (%) (Auto) 11L, Monocytes (%) (Auto) 13H, Eosinophils (%) (Auto) 0, Basophils (%) (Auto) 0, Neutrophils # (Auto) 7.6, Lymphocytes # (Auto) 1.2, Monocytes # (Auto) 1.3H, Eosinophils # (Auto) 0.0, Basophils # (Auto) 0.0, Immature Granulocyte # (Auto) 0.0, Sodium Level 136, Potassium Level 3.3L, Chloride Level 108H, Carbon Dioxide Level 17L, Anion Gap 11, Blood Urea Nitrogen 8, Creatinine 0.76, Estimat Glomerular Filtration Rate 95, BUN/Creatinine Ratio 11, Glucose Level 91, Calcium Level 8.7, Corrected Calcium 9.5, Total Bilirubin 1.0, Aspartate Amino Transf (AST/SGOT) 26, Alanine Aminotransferase (ALT/SGPT) 18, Alkaline Phosphatase 89, Total Protein 6.3L, Albumin 3.0L 09/23/21 12:16: Vancomycin Level Trough 16.6 Microbiology 09/21/21 Gram Stain - Final, Resulted 09/21/21 Wound Culture - Preliminary, Resulted Staphylococcus aureus 09/21/21 Blood Culture - Preliminary, Resulted No growth Assessment/Plan Assessment/Plan Assess & Plan/Chief Complaint Assessment: AMS Sepsis MRSA of left arm wound Alcoholic dementia Plan: DC Ancef Continue Vanc Will speak to son tomorrow about hospice DC ancef Diagnosis/Problems Diagnosis/Problems (1) Cellulitis of arm, left Status: Acute (2) Sepsis Status: Acute Qualifiers: Qualified Codes: A41.9 - Sepsis, unspecified organism (3) Dementia Status: Acute Clinical Quality Measures Admission Status Admission Dx Supportive care Needs Hospice KRISTEN BROOKS DO Sep 23, 2021 13:03
[2021-09-23] MEDS: NS W/KCL 20 MEQ/L 1,000 ML IV SCH ×2 (13:29→23:52)
[2021-09-23 16:05] VITALS: BP 166/96
[2021-09-23 20:15] VITALS: BP 132/60
[2021-09-24] VITALS: BP 159/95
[2021-09-24] MEDS: VANCOMYCIN 750 MG/NS 250 ML IVPB IV SCH ×4 (01:28→13:15)
[2021-09-24 04:00] VITALS: BP 140/89
[2021-09-24 06:25] LABS: MEAN CORPUSCULAR VOLUME 96 fL (80-99); MEAN PLATELET VOLUME 11.2 fL (9.0-12.2)
[2021-09-24 06:28] LABS: BASOPHILS % (AUTO) 0 % (0-10); EOSINOPHILS % (AUTO) 0 % (0-10); HEMATOCRIT 34 % (40-54); HEMOGLOBIN 11.5 g/dL (13.3-17.7); LYMPHOCYTES # (AUTO) 1.2 10^3/uL (1.0-4.0); LYMPHOCYTES % (AUTO) 14 % (12-44); MEAN CORPUSCULAR HEMOGLOBIN 32 pg (25-34); MEAN CORPUSCULAR HGB CONC 34 g/dL (32-36); MONOCYTES # (AUTO) 0.8 10^3/uL (0.0-1.0); MONOCYTES % (AUTO) 10 % (0-12); NEUTROPHILS # (AUTO) 6.5 10^3/uL (1.8-7.8); NEUTROPHILS % (AUTO) 75 % (42-75); PLATELET COUNT 170 10^3/uL (130-400); WHITE BLOOD COUNT 8.6 10^3/uL (4.3-11.0)
--- NOTE | 2021-09-24 06:44 | Progress Note ---
Subjective Date Seen by a Provider: Sep 24, 2021 Time Seen by a Provider: 12:00 Subjective/Events-last exam Patient more alert Regular diet advanced No pain reported IVF maintained will decrease the amount per hour Needs Hospice at [place] Review of Systems Neurological: Confusion Focused Exam Lactate Level 09/21/21 23:15: Lactic Acid Level 1.13 Objective Exam Last Set of Vital Signs Vital Signs Date Time Temp Pulse Resp B/P (MAP) Pulse Ox O2 Delivery O2 Flow Rate FiO2 09/24/21 04:00 37.0 87 16 140/89 (106) 98 Room Air 09/23/21 21:31 0.00 09/22/21 02:49 21 Capillary Refill : Greater Than 3 Seconds I&O Intake and Output 09/24/21 00:00 Intake Total 2770 ml Output Total 3450 ml Balance -680 ml Intake Oral 270 ml IV Total 2500 ml Output Urine Total 3450 ml # Bowel Movements 2 General: Alert, Cooperative, No Acute Distress, Other (confused) Lungs: Clear to Auscultation Heart: Regular Rate Results Lab Laboratory Tests 09/23/21 12:16: Vancomycin Level Trough 16.6 09/24/21 05:24: White Blood Count 8.6, Red Blood Count 3.55L, Hemoglobin 11.5L, Hematocrit 34L, Mean Corpuscular Volume 96, Mean Corpuscular Hemoglobin 32, Mean Corpuscular Hemoglobin Concent 34, Red Cell Distribution Width 11.9, Platelet Count 170, Mean Platelet Volume 11.2, Immature Granulocyte % (Auto) 1, Neutrophils (%) (Auto) 75, Lymphocytes (%) (Auto) 14, Monocytes (%) (Auto) 10, Eosinophils (%) (Auto) 0, Basophils (%) (Auto) 0, Neutrophils # (Auto) 6.5, Lymphocytes # (Auto) 1.2, Monocytes # (Auto) 0.8, Eosinophils # (Auto) 0.0, Basophils # (Auto) 0.0, Immature Granulocyte # (Auto) 0.0, Percent Immature Platelet Fraction 5.0 Microbiology 09/21/21 Urine Culture - Final, Complete NO GROWTH 09/21/21 Gram Stain - Final, Resulted 09/21/21 Wound Culture - Preliminary, Resulted Staphylococcus aureus Susceptibility To Follow 09/21/21 Blood Culture - Preliminary, Resulted No growth Assessment/Plan Assessment/Plan Assess & Plan/Chief Complaint Assessment: AMS Sepsis MRSA of left arm wound Alcoholic dementia Plan: DC Ancef Continue Vanc Will speak to son Saturday about hospice DC ancef Decrease IVF Regular diet Diagnosis/Problems Diagnosis/Problems (1) Cellulitis of arm, left Status: Acute (2) Sepsis Status: Acute Qualifiers: Qualified Codes: A41.9 - Sepsis, unspecified organism (3) Dementia Status: Acute Clinical Quality Measures Admission Status Admission Dx Supportive care Needs Hospice KRISTEN BROOKS DO Sep 24, 2021 06:44
[2021-09-24 06:47] LABS: POTASSIUM 3.3 MMOL/L (3.6-5.0)
[2021-09-24 06:48] LABS: CALCIUM 8.5 MG/DL (8.5-10.1)
[2021-09-24 06:49] LABS: TOTAL PROTEIN 6.3 GM/DL (6.4-8.2)
[2021-09-24 06:51] LABS: BILIRUBIN,TOTAL 1.2 MG/DL (0.1-1.0)
[2021-09-24 06:53] LABS: CREATININE SERUM 0.68 MG/DL (0.60-1.30)
[2021-09-24 08:47] VITALS: BP 159/91
[2021-09-24] MEDS: SENNA W/DOCUSATE (SENOKOT S) TABLET PO SCH ×2 (09:39→20:13)
[2021-09-24] MEDS: NS W/KCL 20 MEQ/L 1,000 ML IV SCH ×2 (09:44→10:47)
[2021-09-24] MEDS: ENOXAPARIN INJECTION 30 MG/0.3 ML SYR SC SCH (11:40)
[2021-09-24 12:26] VITALS: BP 140/82
[2021-09-24 15:55] VITALS: BP 139/90
[2021-09-25] VITALS: BP 150/85
[2021-09-25] MEDS: NS W/KCL 20 MEQ/L 1,000 ML IV SCH ×2 (00:38→07:41)
[2021-09-25] MEDS: VANCOMYCIN 750 MG/NS 250 ML IVPB IV SCH ×4 (00:39→13:05)
[2021-09-25 06:07] LABS: BASOPHILS % (AUTO) 0 % (0-10); EOSINOPHILS % (AUTO) 0 % (0-10); HEMATOCRIT 33 % (40-54); HEMOGLOBIN 11.5 g/dL (13.3-17.7); LYMPHOCYTES # (AUTO) 1.4 10^3/uL (1.0-4.0); LYMPHOCYTES % (AUTO) 23 % (12-44); MEAN CORPUSCULAR HEMOGLOBIN 33 pg (25-34); MEAN CORPUSCULAR HGB CONC 35 g/dL (32-36); MEAN CORPUSCULAR VOLUME 95 fL (80-99); MEAN PLATELET VOLUME 10.3 fL (9.0-12.2); MONOCYTES # (AUTO) 0.7 10^3/uL (0.0-1.0); MONOCYTES % (AUTO) 12 % (0-12); NEUTROPHILS # (AUTO) 3.8 10^3/uL (1.8-7.8); NEUTROPHILS % (AUTO) 64 % (42-75); PLATELET COUNT 232 10^3/uL (130-400); WHITE BLOOD COUNT 5.9 10^3/uL (4.3-11.0)
[2021-09-25 06:26] LABS: ALBUMIN 2.8 GM/DL (3.2-4.5)
[2021-09-25 06:28] LABS: CALCIUM 8.6 MG/DL (8.5-10.1)
[2021-09-25 06:29] LABS: TOTAL PROTEIN 6.2 GM/DL (6.4-8.2)
[2021-09-25 06:31] LABS: BILIRUBIN,TOTAL 0.9 MG/DL (0.1-1.0)
[2021-09-25 06:33] LABS: CREATININE SERUM 0.66 MG/DL (0.60-1.30)
[2021-09-25] MEDS: SENNA W/DOCUSATE (SENOKOT S) TABLET PO SCH (07:44)
[2021-09-25 08:12] VITALS: BP 162/98
[2021-09-25] MEDS ORDERED: ACHD5005 PO (10:26)
[2021-09-25] MEDS ORDERED: LINE600T12 PO (10:26)
[2021-09-25] MEDS ORDERED: POTA10TA37 PO (10:26)
--- NOTE | 2021-09-25 10:28 | Discharge Summary ---
Diagnosis/Chief Complaint Date of Admission Sep 22, 2021 at 01:07 Date of Discharge Discharge Date: Sep 25, 2021 Discharge Diagnosis Assessment: AMS Sepsis MRSA of left arm wound Alcoholic dementia Plan: DC Ancef Continue Vanc Will speak to son Saturday about hospice DC ancef Decrease IVF Regular diet Reason Hospital Visit CC: Altered mental status HPI: This is a 71 yr old residential pt with alcoholic dementia. Pt presented to the residential with altered mental status from [facility]. Pt was found to have left arm skin tear with cellulitis found to have sepsis. Pt was placed on IV antibiotics and IV fluids. Currently he is doing well but he continues to be a hospice candidate. Will need to address that soon. Discharge Summary Discharge Physical Examination Allergies: Coded Allergies: No Known Drug Allergies (Unverified , 09/22/21) Vitals & I&Os Vital Signs Date Time Temp Pulse Resp B/P (MAP) Pulse Ox O2 Delivery O2 Flow Rate FiO2 09/25/21 08:12 36.4 89 17 162/98 (119) 89 Room Air 09/24/21 07:49 0.00 09/22/21 02:49 21 General Appearance: Alert Respiratory: Clear to Auscultation Cardiovascular: Regular Rate Psych/Mental Status: Other (Confusion) Hospital Course Was the Problem List Reviewed?: Yes Brief Hospital Course: Levi Donnelly is a 71-year-old male who resides in a local residential, who was admitted for altered mental status and found to have MRSA sepsis. Patient recently had COVID with his quarantine ending 13 September. He has a history of alcohol induced dementia. Upon arrival he had 2/4 SIRS criteria and was hypotensive. A wound on his left arm was cultured and he was started on Vancomycin, Cefazolin, and IV fluids. Culture results revealed MRSA and Cefaz arina was discontinued. He required potassium supplementation during his stay. His altered mental status improved throughout his hospitalization and he is being discharged to [facility] on Linezolid 600 BID in stable condition with plans to enroll in hospice. ARIANE SANTILLAN Labs (last 24 hrs) Laboratory Tests 09/21/21 23:15: White Blood Count 10.5, Red Blood Count 3.64L, Hemoglobin 11.9L, Hematocrit 35L, Mean Corpuscular Volume 96, Mean Corpuscular Hemoglobin 33, Mean Corpuscular Hemoglobin Concent 34, Red Cell Distribution Width 12.1, Platelet Count 232, Mean Platelet Volume 9.9, Immature Granulocyte % (Auto) 0, Neutrophils (%) (Auto) 78H, Lymphocytes (%) (Auto) 7L, Monocytes (%) (Auto) 14H, Eosinophils (%) (Auto) 0, Basophils (%) (Auto) 0, Neutrophils # (Auto) 8.2H, Lymphocytes # (Auto) 0.8L, Monocytes # (Auto) 1.5H, Eosinophils # (Auto) 0.0, Basophils # (Auto) 0.0, Immature Granulocyte # (Auto) 0.0, Neutrophils % (Manual) 89, Lymphocytes % (Manual) 4, Monocytes % (Manual) 7, Blood Morphology Comment NORMAL, Prothrombin Time 16.6H, INR Comment 1.3, Activated Partial Thromboplast Time 28, Sodium Level 136, Potassium Level 3.8, Chloride Level 105, Carbon Dioxide Level 16L, Anion Gap 15H, Blood Urea Nitrogen 15, Creatinine 1.06, Estimat Glomerular Filtration Rate 75, BUN/Creatinine Ratio 14, Glucose Level 111H, Lactic Acid Level 1.13, Calcium Level 9.0, Corrected Calcium 9.6, Magnesium Level 2.0, Total Bilirubin 1.4H, Aspartate Amino Transf (AST/SGOT) 29, Alanine Aminotransferase (ALT/SGPT) 26, Alkaline Phosphatase 109, C-Reactive Protein High Sensitivity 8.29H, Total Protein 6.6, Albumin 3.3, Procalcitonin 0.40H 09/21/21 23:21: Glucometer 107 09/21/21 23:29: Urine Color YELLOW, Urine Clarity CLEAR, Urine pH 6.0, Urine Specific Wilson 1.020, Urine Protein TRACEH, Urine Glucose (UA) NEGATIVE, Urine Ketones 2+H, Urine Nitrite NEGATIVE, Urine Bilirubin 1+H, Urine Urobilinogen 1.0, Urine Leukocyte Esterase NEGATIVE, Urine RBC (Auto) TRACE-IH, Urine RBC 0-2, Urine WBC NONE, Urine Crystals NONE, Urine Bacteria TRACE, Urine Casts NONE, Urine Mucus NEGATIVE, Urine Culture Indicated CULTURE PENDING 09/21/21 23:39: Influenza Type A (RT-PCR) Not Detected, Influenza Type B (RT-PCR) Not Detected, SARS-CoV-2 RNA (RT-PCR) Not Detected 09/22/21 05:22: White Blood Count 10.8, Red Blood Count 3.37L, Hemoglobin 11.1L, Hematocrit 33L, Mean Corpuscular Volume 97, Mean Corpuscular Hemoglobin 33, Mean Corpuscular Hemoglobin Concent 34, Red Cell Distribution Width 12.2, Platelet Count 205, Mean Platelet Volume 9.9, Immature Granulocyte % (Auto) 1, Neutrophils (%) (Auto) 68, Lymphocytes (%) (Auto) 13, Monocytes (%) (Auto) 18H, Eosinophils (%) (Auto) 0, Basophils (%) (Auto) 0, Neutrophils # (Auto) 7.4, Lymphocytes # (Auto) 1.4, Monocytes # (Auto) 2.0H, Eosinophils # (Auto) 0.0, Basophils # (Auto) 0.0, Immature Granulocyte # (Auto) 0.1, Sodium Level 139, Potassium Level 3.5L, Chloride Level 110H, Carbon Dioxide Level 16L, Anion Gap 13, Blood Urea Nitrogen 14, Creatinine 0.87, Estimat Glomerular Filtration Rate 92, BUN/Creatinine Ratio 16, Glucose Level 112H, Calcium Level 8.5 09/23/21 06:15: White Blood Count 10.1, Red Blood Count 3.58L, Hemoglobin 11.8L, Hematocrit 34L, Mean Corpuscular Volume 96, Mean Corpuscular Hemoglobin 33, Mean Corpuscular Hemoglobin Concent 34, Red Cell Distribution Width 11.9, Platelet Count 203, Mean Platelet Volume 10.2, Immature Granulocyte % (Auto) 0, Neutrophils (%) (Auto) 75, Lymphocytes (%) (Auto) 11L, Monocytes (%) (Auto) 13H, Eosinophils (%) (Auto) 0, Basophils (%) (Auto) 0, Neutrophils # (Auto) 7.6, Lymphocytes # (Auto) 1.2, Monocytes # (Auto) 1.3H, Eosinophils # (Auto) 0.0, Basophils # (Auto) 0.0, Immature Granulocyte # (Auto) 0.0, Sodium Level 136, Potassium Level 3.3L, Chloride Level 108H, Carbon Dioxide Level 17L, Anion Gap 11, Blood Urea Nitrogen 8, Creatinine 0.76, Estimat Glomerular Filtration Rate 95, BUN/Creatinine Ratio 11, Glucose Level 91, Calcium Level 8.7, Corrected Calcium 9.5, Total Bilirubin 1.0, Aspartate Amino Transf (AST/SGOT) 26, Alanine Aminotransferase (ALT/SGPT) 18, Alkaline Phosphatase 89, Total Protein 6.3L, Albumin 3.0L 09/23/21 12:16: Vancomycin Level Trough 16.6 09/24/21 05:24: White Blood Count 8.6, Red Blood Count 3.55L, Hemoglobin 11.5L, Hematocrit 34L, Mean Corpuscular Volume 96, Mean Corpuscular Hemoglobin 32, Mean Corpuscular Hemoglobin Concent 34, Red Cell Distribution Width 11.9, Platelet Count 170, Mean Platelet Volume 11.2, Immature Granulocyte % (Auto) 1, Neutrophils (%) (Auto) 75, Lymphocytes (%) (Auto) 14, Monocytes (%) (Auto) 10, Eosinophils (%) (Auto) 0, Basophils (%) (Auto) 0, Neutrophils # (Auto) 6.5, Lymphocytes # (Auto) 1.2, Monocytes # (Auto) 0.8, Eosinophils # (Auto) 0.0, Basophils # (Auto) 0.0, Immature Granulocyte # (Auto) 0.0, Sodium Level 137, Potassium Level 3.3L, Chlor arin Level 107, Carbon Dioxide Level 15L, Anion Gap 15H, Blood Urea Nitrogen 7, Creatinine 0.68, Estimat Glomerular Filtration Rate 99, BUN/Creatinine Ratio 10, Glucose Level 66L, Calcium Level 8.5, Corrected Calcium 9.3, Total Bilirubin 1.2H, Aspartate Amino Transf (AST/SGOT) 24, Alanine Aminotransferase (ALT/SGPT) 12, Alkaline Phosphatase 87, Total Protein 6.3L, Albumin 3.0L, Percent Immature Platelet Fraction 5.0 09/25/21 05:00: Sodium Level 136, Potassium Level 3.0L, Chloride Level 107, Carbon Dioxide Level 19L, Anion Gap 10, Blood Urea Nitrogen 6L, Creatinine 0.66, Estimat Glomerular Filtration Rate 100, BUN/Creatinine Ratio 9, Glucose Level 88, Calcium Level 8.6, Corrected Calcium 9.6, Total Bilirubin 0.9, Aspartate Amino Transf (AST/SGOT) 21, Alanine Aminotransferase (ALT/SGPT) 12, Alkaline Phosphatase 87, Total Protein 6.2L, Albumin 2.8L 09/25/21 06:02: White Blood Count 5.9, Red Blood Count 3.49L, Hemoglobin 11.5L, Hematocrit 33L, Mean Corpuscular Volume 95, Mean Corpuscular Hemoglobin 33, Mean Corpuscular Hemoglobin Concent 35, Red Cell Distribution Width 11.9, Platelet Count 232, Mean Platelet Volume 10.3, Immature Granulocyte % (Auto) 0, Neutrophils (%) (Auto) 64, Lymphocytes (%) (Auto) 23, Monocytes (%) (Auto) 12, Eosinophils (%) (Auto) 0, Basophils (%) (Auto) 0, Neutrophils # (Auto) 3.8, Lymphocytes # (Auto) 1.4, Monocytes # (Auto) 0.7, Eosinophils # (Auto) 0.0, Basophils # (Auto) 0.0, Immature Granulocyte # (Auto) 0.0 Microbiology 09/21/21 Urine Culture - Final, Complete NO GROWTH 09/21/21 Gram Stain - Final, Complete 09/21/21 Wound Culture - Final, Complete Staphylococcus aureus 09/21/21 Blood Culture - Preliminary, Resulted No growth Pending Labs Microbiology Date/Time Source Procedure Growth Status 09/21/21 23:29 Urine [place] Cath Urine Culture - Final NO GROWTH Complete 09/21/21 23:23 Cyst/Abscess Elbow, Lt Gram Stain - Final Complete 09/21/21 23:23 Wound Culture - Final Staphylococcus aureus Complete 09/21/21 23:17 Peripheral Arm, Right Blood Culture - Preliminary No growth Resulted 09/21/21 23:15 Peripheral Rt Forearm Blood Culture - Preliminary No growth Resulted Laboratory Tests 09/21/21 23:15: White Blood Count 10.5, Red Blood Count 3.64, Hemoglobin 11.9, Hematocrit 35, Mean Corpuscular Volume 96, Mean Corpuscular Hemoglobin 33, Mean Corpuscular Hemoglobin Concent 34, Red Cell Distribution Width 12.1, Platelet Count 232, Mean Platelet Volume 9.9, Immature Granulocyte % (Auto) 0, Neutrophils (%) (Auto) 78, Lymphocytes (%) (Auto) 7, Monocytes (%) (Auto) 14, Eosinophils (%) (Auto) 0, Basophils (%) (Auto) 0, Neutrophils # (Auto) 8.2, Lymphocytes # (Auto) 0.8, Monocytes # (Auto) 1.5, Eosinophils # (Auto) 0.0, Basophils # (Auto) 0.0, Immature Granulocyte # (Auto) 0.0, Neutrophils % (Manual) 89, Lymphocytes % (Manual) 4, Monocytes % (Manual) 7, Blood Morphology Comment NORMAL, Prothrombin Time 16.6, INR Comment 1.3, Activated Partial Thromboplast Time 28, Sodium Level 136, Potassium Level 3.8, Chloride Level 105, Carbon Dioxide Level 16, Anion Gap 15, Blood Urea Nitrogen 15, Creatinine 1.06, Estimat Glomerular Filtration Rate 75, BUN/Creatinine Ratio 14, Glucose Level 111, Lactic Acid Level 1.13, Calcium Level 9.0, Corrected Calcium 9.6, Magnesium Level 2.0, Total Bilirubin 1.4, Aspartate Amino Transf (AST/SGOT) 29, Alanine Aminotransferase (ALT/SGPT) 26, Alkaline Phosphatase 109, C-Reactive Protein High Sensitivity 8.29, Total Protein 6.6, Albumin 3.3, Procalcitonin 0.40 09/21/21 23:21: Glucometer 107 09/21/21 23:29: Urine Color YELLOW, Urine Clarity CLEAR, Urine pH 6.0, Urine Specific Wilson 1.020, Urine Protein TRACE, Urine Glucose (UA) NEGATIVE, Urine Ketones 2+, Urine Nitrite NEGATIVE, Urine Bilirubin 1+, Urine Urobilinogen 1.0, Urine Leukocyte Esterase NEGATIVE, Urine RBC (Auto) TRACE-I, Urine RBC 0-2, Urine WBC NONE, Urine Crystals NONE, Urine Bacteria TRACE, Urine Casts NONE, Urine Mucus NEGATIVE, Urine Culture Indicated CULTURE PENDING 09/21/21 23:39: Influenza Type A (RT-PCR) Not Detected, Influenza Type B (RT-PCR) Not Detected, SARS-CoV-2 RNA (RT-PCR) Not Detected 09/22/21 05:22: White Blood Count 10.8, Red Blood Count 3.37, Hemoglobin 11.1, Hematocrit 33, Mean Corpuscular Volume 97, Mean Corpuscular Hemoglobin 33, Mean Corpuscular Hemoglobin Concent 34, Red Cell Distribution Width 12.2, Platelet Count 205, Mean Platelet Volume 9.9, Immature Granulocyte % (Auto) 1, Neutrophils (%) (Auto) 68, Lymphocytes (%) (Auto) 13, Monocytes (%) (Auto) 18, Eosinophils (%) (Auto) 0, Basophils (%) (Auto) 0, Neutrophils # (Auto) 7.4, Lymphocytes # (Auto) 1.4, Monocytes # (Auto) 2.0, Eosinophils # (Auto) 0.0, Basophils # (Auto) 0.0, Immature Granulocyte # (Auto) 0.1, Sodium Level 139, Potassium Level 3.5, Chloride Level 110, Carbon Dioxide Level 16, Anion Gap 13, Blood Urea Nitrogen 14, Creatinine 0.87, Estimat Glomerular Filtration Rate 92, BUN/Creatinine Ratio 16, Glucose Level 112, Calcium Level 8.5 09/23/21 06:15: White Blood Count 10.1, Red Blood Count 3.58, Hemoglobin 11.8, Hematocrit 34, Mean Corpuscular Volume 96, Mean Corpuscular Hemoglobin 33, Mean Corpuscular H emoglobin Concent 34, Red Cell Distribution Width 11.9, Platelet Count 203, Mean Platelet Volume 10.2, Immature Granulocyte % (Auto) 0, Neutrophils (%) (Auto) 75, Lymphocytes (%) (Auto) 11, Monocytes (%) (Auto) 13, Eosinophils (%) (Auto) 0, Basophils (%) (Auto) 0, Neutrophils # (Auto) 7.6, Lymphocytes # (Auto) 1.2, Monocytes # (Auto) 1.3, Eosinophils # (Auto) 0.0, Basophils # (Auto) 0.0, Immature Granulocyte # (Auto) 0.0, Sodium Level 136, Potassium Level 3.3, Chloride Level 108, Carbon Dioxide Level 17, Anion Gap 11, Blood Urea Nitrogen 8, Creatinine 0.76, Estimat Glomerular Filtration Rate 95, BUN/Creatinine Ratio 11, Glucose Level 91, Calcium Level 8.7, Corrected Calcium 9.5, Total Bilirubin 1.0, Aspartate Amino Transf (AST/SGOT) 26, Alanine Aminotransferase (ALT/SGPT) 18, Alkaline Phosphatase 89, Total Protein 6.3, Albumin 3.0 09/23/21 12:16: Vancomycin Level Trough 16.6 09/24/21 05:24: White Blood Count 8.6, Red Blood Count 3.55, Hemoglobin 11.5, Hematocrit 34, Me an Corpuscular Volume 96, Mean Corpuscular Hemoglobin 32, Mean Corpuscular Hemoglobin Concent 34, Red Cell Distribution Width 11.9, Platelet Count 170, Mean Platelet Volume 11.2, Immature Granulocyte % (Auto) 1, Neutrophils (%) (Auto) 75, Lymphocytes (%) (Auto) 14, Monocytes (%) (Auto) 10, Eosinophils (%) (Auto) 0, Basophils (%) (Auto) 0, Neutrophils # (Auto) 6.5, Lymphocytes # (Auto) 1.2, Monocytes # (Auto) 0.8, Eosinophils # (Auto) 0.0, Basophils # (Auto) 0.0, Immature Granulocyte # (Auto) 0.0, Sodium Level 137, Potassium Level 3.3, Chloride Level 107, Carbon Dioxide Level 15, Anion Gap 15, Blood Urea Nitrogen 7, Creatinine 0.68, Estimat Glomerular Filtration Rate 99, BUN/Creatinine Ratio 10, Glucose Level 66, Calcium Level 8.5, Corrected Calcium 9.3, Total Bilirubin 1.2, Aspartate Amino Transf (AST/SGOT) 24, Alanine Aminotransferase (ALT/SGPT) 12, Alkaline Phosphatase 87, Total Protein 6.3, Albumin 3.0, Percent Immature Platelet Fraction 5.0 09/25/21 05:00: Sodium Level 136, Potassium Level 3.0, Chloride Level 107, Carbon Dioxide Level 19, Anion Gap 10, Blood Urea Nitrogen 6, Creatinine 0.66, Estimat Glomerular Filtration Rate 100, BUN/Creatinine Ratio 9, Glucose Level 88, Calcium Level 8.6, Corrected Calcium 9.6, Total Bilirubin 0.9, Aspartate Amino Transf (AST/SGOT) 21, Alanine Aminotransferase (ALT/SGPT) 12, Alkaline Phosphatase 87, Total Protein 6.2, Albumin 2.8 09/25/21 06:02: White Blood Count 5.9, Red Blood Count 3.49, Hemoglobin 11.5, Hematocrit 33, Mean Corpuscular Volume 95, Mean Corpuscular Hemoglobin 33, Mean Corpuscular Hemoglobin Concent 35, Red Cell Distribution Width 11.9, Platelet Count 232, Mean Platelet Volume 10.3, Immature Granulocyte % (Auto) 0, Neutrophils (%) (Auto) 64, Lymphocytes (%) (Auto) 23, Monocytes (%) (Auto) 12, Eosinophils (%) (Auto) 0, Basophils (%) (Auto) 0, Neutrophils # (Auto) 3.8, Lymphocytes # (Auto) 1.4, Monocytes # (Auto) 0.7, Eosinophils # (Auto) 0.0, Basophils # (Auto) 0.0, Immature Granulocyte # (Auto) 0.0 Discharge Home Medications: Active Scripts Active HYDROcodone/APAP 5 MG/325 MG TAB (Acetaminophen/Hydrocodone Bitart) 1 Tab Tab 1 Ea PO Q4H PRN Potassium Chloride 10 Meq Tab.er.prt 10 Meq PO DAILY Zyvox (Linezolid) 600 Mg Tablet 600 Mg PO BID Reported Flomax (Tamsulosin HCl) 0.4 Mg Cap 0.4 Mg PO 1800 Senna S Tablet (Sennosides/Docusate Sodium) 8.6 Mg-50 Mg Tablet 2 Each PO DAILY PRN Multivitamin with Iron Tablet (Multivitamin/Iron/Folic Acid) 18 Mg Iron-400 Mcg Tablet 1 Each PO DAILY Keppra (Levetiracetam) 500 Mg Tablet 500 Mg PO BID Instructions to patient/family Please see electronic discharge instructions given to patient. Diagnosis/Problems Diagnosis/Problems (1) Cellulitis of arm, left Status: Acute (2) Sepsis Status: Acute Qualifiers: Qualified Codes: A41.9 - Sepsis, unspecified organism (3) Dementia Status: Acute KRISTEN BROOKS DO Sep 25, 2021 10:28
[2021-09-25] MEDS ORDERED: KCL 20 MEQ TAB (K-DUR) PO NR (10:45)
[2021-09-25] MEDS: ENOXAPARIN INJECTION 30 MG/0.3 ML SYR SC SCH (11:10)
--- NOTE | 2021-09-25 11:41 | Progress Note ---
ARIANE SANTILLAN 09/25/21 1141: Progress Note Brief Hospital Course: Levi Donnelly is a 71-year-old male who resides in a local [place] [facility], who was admitted for altered mental status and found to have MRSA sepsis. Patient recently had COVID with his quarantine ending 13 September. He has a history of alcohol induced dementia. Upon arrival he had 2/4 SIRS criteria and was hypotensive. A wound on his left arm was cultured and he was started on Vancomycin, Cefazolin, and IV fluids. Culture results revealed MRSA and Cefazolin was discontinued. He required potassium supplementation during his stay. His altered mental status improved throughout his hospitalization and he is being discharged to [facility] on Linezolid 600 BID in stable condition with plans to enroll in hospice. STEFFI BROOKS DO 09/26/21 0842: Supervisory-Addendum Brief Verification & Attestation Participated in pt care: history, MDM, physical Personally performed: exam, history, MDM, supervision of care Care discussed with: Medical Student Procedures: n/a Results interpretation: Verified all documentation Verification and Attestation of Medical Student E/M Service A medical student performed and documented this service in my presence. I reviewed and verified all information documented by the medical student and made modifications to such information, when appropriate. I personally performed the physical exam and medical decision making. Steffi Brooks, Sep 26, 2021,08:42 ARIANE SANTILLAN Sep 25, 2021 11:41 STEFFI BROOKS DO Sep 26, 2021 08:42
--- NOTE | 2021-09-25 13:11 | Physician Query Clarification ---
Physician Query-General Query to Physician: The medical record reflects the following clinical evidence: Clinical Indicators: "altered mental status and poor responsiveness" prior to admission, Per H and P " MINIMALLY RESPONSIVE". Per H and P, GCS 9 on admission per Nursing, Has improved to 14, after treatment, Nursing documenting "confused" which appears to be baseline per previous admissions Risk Factor(s): Sepsis, "Alcoholic Dementia" Treatment: Normal saline 1 L, Tylenol suppository, cefazolin sodium IV, vancomycin IV 1. Metabolic (septic) encephalopathy in the setting of sepsis, present on a dmission, now resolved 2. Other explanation of clinical findings 3. Unable to determine (no explanation for clinical findings) Please clarify and document your clinical opinion in the progress notes and discharge summary including the definitive and/or presumptive diagnosis, (suspected or probable), related to the above clinical findings. Please include clinical findings supporting your diagnosis. Amy Davis RN, MSN Clinical Branch Operation Evaluation Manager [phone] [email or web address] PHYSICIAN RESPONSE: Based on the clinical findings in the record, please respond to the query above on this document as an addendum. Physician Response: Physician Response 1 If you have questions please contact: Social Media Intern: Ext: Thank you for your time and cooperation. Clinical Branch Operation Evaluation Manager/Social Media Intern This is a permanent part of the medical record AMY DAVIS Sep 25, 2021 13:11 KRISTEN BROOKS DO Sep 25, 2021 20:43
[2021-09-26] MEDS ORDERED: KCL 20 MEQ TAB (K-DUR) PO SCH (07:00)
== END 2021-09-25 13:58 | disposition hospice, inpatient (51) | DRG 871 ==
LOC: EDUNIT# 23:08 → ER 23:10 → 4TH 09-22 01:07
PROVIDERS: ADMIT Internal Medicine; ATTEND Internal Medicine
DX: A41.02 Sepsis due to Methicillin resistant Staphylococcus aureus (principal); G93.41 Metabolic encephalopathy; L03.114 Cellulitis of left upper limb; Z86.16 Personal history of COVID-19; F10.97 Alcohol use, unspecified with alcohol-induced persisting dementia; S41.102A Unspecified open wound of left upper arm, initial encounter; I10 Essential (primary) hypertension; Z87.891 Personal history of nicotine dependence; Z20.822 Contact with and (suspected) exposure to COVID-19
CPT/HCPCS: 36415; 51702; 70450; 71045; 80048; 80053; 80202; 81000; 82947; 83605; 83735; 84145; 85007; 85025; 85027; 85610; 85730; 86141; 87040; 87070; 87077; 87088; 87186; 87205; 87636; 93005; 94760